=== PATIENT | female | born 1955 | race Caucasian/White ===

== ENCOUNTER 2020-09-01 11:00 | Emergency (ER) | payer MEDICARE, OTHER, SELFPAY ==
[2020-09-01] VITALS (7 sets, daily range): BP systolic 162–179; BP diastolic 88–97; PULSE 69–94; RESP 15–21; TEMP 35.8; O2SAT 99–100
--- NOTE | 2020-09-01 11:16 | ECG_ITS ---
Measurements Intervals [place] Rate: 85 P: 65 OK: 150 QRS: 77 QRSD: 118 T: 55 QT: 421 QTc: 503 Interpretive Statements SINUS RHYTHM POSSIBLE LEFT ATRIAL ENLARGEMENT INCOMPLETE RIGHT BUNDLE BRANCH BLOCK BORDERLINE ST ABNORMALITY- ANTEROLAT/INF LEADS BASELINE ARTIFACT- II, III, AVR, AVF, V1 BORDERLINE ECG Electronically Signed On 09-01-2020 12:05:47 CDT by Wilbert Johnson D.O.
[2020-09-01 11:54] LABS: Basophils Percent Auto 0.6 % (0.2-1.2); Eosinophils Absolute Auto 0.1 K/mm3 (0-0.3); Eosinophils Percent Auto 1.4 % (0-4.4); Hematocrit 42.2 % (37.0-47.0); Hemoglobin 14.2 g/dL (12.0-15.0); Immature Granulocyte Absolute 0.08 K/mm3 (0.00-0.031); Immature Granulocyte Percent A 1.2 % (0-0.5); Lymphocytes Absolute Auto 1.81 K/mm3 (0.9-3.2); Lymphocytes Percent Auto 27.9 % (18.3-44.2); Mean Corpuscular HGB Conc 33.6 g/dl (32-36); Mean Corpuscular Hemoglobin 29.2 pg (26-34); Mean Corpuscular Volume 86.7 fl (80-100); Mean Platelet Volume 10.4 fl (7.4-10.4); Monocytes Absolute Auto 0.3 K/mm3 (0.1-0.6); Monocytes Percent Auto 4.5 % (2.6-8.5); Neutrophils Absolute Auto 4.2 K/mm3 (1.3-6.7); Neutrophils Percent Auto 64.4 % (45.5-73.1); Platelet Count Result 266 k/mm3 (150-375); Red Blood Count 4.87 M/mm3 (4.2-5.4); Red Cell Distribution Width 12.4 % (11.5-14.5); White Blood Count 6.5 K/mm3 (4.5-10.0)
[2020-09-01 11:56] LABS: Anion Gap 8 mmol/L (8-16); Blood Urea Nitrogen 19 mg/dL (7-17); Calcium 9.2 mg/dL (8.4-10.2); Carbon Dioxide 23 mmol/L (22-30); Chloride 107 mmol/L (98-107); Estimated CRCL calculation 61 ml/min; Estimated Glomerular Filt Rate > 60; Glucose 169 mg/dL (65-105); Potassium 3.9 mmol/L (3.4-5.0); Sodium 138 mmol/L (137-145)
--- NOTE | 2020-09-01 12:11 | ED.GENADULT ---
HPI - General Adult General Chief complaint: Dizziness Stated complaint: DIZZY Time Seen by Provider: 09/01/20 11:17 History of Present Illness HPI narrative: Patient is a 65-year-old female who presents ER with dizziness and nausea and vomiting. Patient reports she was on the phone last night when she had a brief episode of spinning dizziness. It went away and she is able to go out with her friends to have some margaritas. Patient has been under a lot of stress as she is been caring for her sister and her sister's recently. Patient then woke up this morning and has been having severe positional dizziness that makes her nauseous and has caused her to vomit. No focal weakness in arm or leg. No slurred speech. Has not had similar symptoms this previously. Denies any sinus congestion or sore throat. No ear pressure or tinnitus. Her symptoms are also improved with sitting still and closing her eyes. Related Data Home Medications Medication Instructions Recorded Confirmed duloxetine mg PO 09/01/20 melatonin mg 09/01/20 Allergies Allergy/AdvReac Type Severity Reaction Status Date / Time Sulfa (Sulfonamide Allergy Mild HIVES Unverified 09/01/20 12:25 Antibiotics) Review of Systems Review of Systems: All systems reviewed & are unremarkable except as noted in HPI and below Constitutional: Constitutional: Denies chills, Denies fever(s) and Denies weakness Eyes: Eyes: Denies change in vision and Denies photophobia ENT: Reports dizziness, Denies nasal congestion and Denies sore throat Cardiovascular: Cardiovascular: Denies chest pain, Denies rapid heart rate and Denies radiating jaw, neck or arm pain Respiratory: Respiratory: Denies cough, Denies dyspnea and Denies wheezing Gastrointestinal: Gastrointestinal: Denies abdominal pain, Denies diarrhea, Reports nausea and Reports vomiting Genitourinary: Genitourinary: Denies nocturia and Denies dysuria [facility] Past Medical History Medical History (Updated 09/01/20 @ 14:46 by Sandro Phan MD) Anxiety Depression GERD (gastroesophageal reflux disease) Surgical History Surgical History (Updated 09/01/20 @ 12:19 by Sandro Phan MD) History of section History of cholecystectomy Family History Family History (Updated 09/01/20 @ 12:19 by Sandro Phan MD) Sibling Cerebrovascular accident Social History Social History (Updated 09/01/20 @ 12:19 by Sandro Phan MD) Smoking status: Never smoker Exam Narrative: Exam Narrative: GENERAL: Well-appearing, well-nourished, and in no acute distress. HEAD: Normocephalic, atraumatic. EYES: PERRL and EOMI. no nystagmus. ENT: Mucous membranes moist. TMs normal bilaterally. CHEST: Clear to auscultation. No respiratory distress. HEART: Regular rate and rhythm. Normal peripheral pulses. ABDOMEN: Soft, nontender, nondistended, normal active bowel sounds. EXTREMITIES: Normal range of motion. No edema. SKIN: Warm, dry, no rash. NEURO: No focal deficits. Normal finger-nose testing and [id number] testing bilaterally. No upper or lower extremity drift. Cranial nerves II through XII intact. Alert and oriented x3. Course Course Emergency Course: Dizziness markedly improved with meclizine and fluids. Patient ambulates steady gait. Discharge home with supportive medications. Apparently patient also had some sinus congestion issues in the last week that may have spurred this. Vital Signs Vital signs: Vital Signs Temperature 96.4 F L 09/01/20 11:02 Pulse Rate 94 09/01/20 11:02 Respiratory Rate 16 09/01/20 11:02 Blood Pressure 165/91 H 09/01/20 11:02 Pulse Oximetry 100 09/01/20 11:02 Temperature 96.4 F L 09/01/20 11:02 Pulse Rate 83 09/01/20 13:45 Respiratory Rate 17 09/01/20 13:45 Blood Pressure 163/90 H 09/01/20 13:45 Pulse Oximetry 100 09/01/20 13:45 Medical Decision Making Vital Signs Vital Signs: Vital Signs Temperature 96.4
[2020-09-01] MEDS: MECLIZINE HCL 25 MG TABLET PO (12:22)
[2020-09-01] MEDS: SODIUM CHLORIDE 0.9% IV 1,000 ML 999 ML IV CONT (12:22)
[2020-09-01 14:20] LABS: Add Urine Microscopic? YES; Amorphous Sediment Urine Few; Appearance Urine Cloudy (Clear); Bacteria Urine Trace /hpf; Bilirubin Urine Negative (Negative); Blood Urine Negative (Negative); Color Urine Yellow (Yellow); Glucose Urine UA Negative (Negative); Ketones Urine Trace mg/dL (Negative); Leukocyte Esterase Ur Negative LEU/UL (Negative); Mucus Urine Moderate /lpf; Nitrate Urine Negative (Negative); Protein Urine Negative (Negative); Specific Grav Ur 1.012 (1.001-1.035); Squamous Epithelial Cell Urine Rare /hpf (Few); Urobilinogen Urine Negative mg/dL (<2.0)
== END 2020-09-01 15:03 | disposition home or self-care (01) ==
PROVIDERS: Emergency Provider Emergency Medicine; PCP Internal Medicine
DX: H81.10 Benign paroxysmal vertigo, unspecified ear (principal); K21.9 Gastro-esophageal reflux disease without esophagitis; F41.9 Anxiety disorder, unspecified; F32.9 Major depressive disorder, single episode, unspecified; I45.10 Unspecified right bundle-branch block; R94.31 Abnormal electrocardiogram [ECG] [EKG]
CPT/HCPCS: 36415; 80048; 81001; 85025; 93005; 96360; 99283; A9270; J7030

== ENCOUNTER 2021-02-21 09:15 | Outpatient (RCR) | payer MEDICARE, OTHER, SELFPAY ==
--- NOTE | 2021-01-24 14:40 | PTOPEVAL ---
PHYSICAL THERAPY EVALUATION Thank you for referring Johanne Castro to [facility].? Erum was evaluated for the dx of christiano. knee pain. The patient is scheduled to be seen for therapy?2 x/week for 4 weeks. Please review, sign, date and return this plan of care ENRIQUE. I agree with and certify that the following plan of care is medically necessary. Referring Physician Date Attending Provider: Penny Salinas, *PT Outpatient Evaluation Start: 01/24/21 13:17 Freq: Status: Active Protocol: Document 01/24/21 13:18 MLV (Rec: 01/24/21 14:17 MLV [id number]) Therapy Assessment Status Assessment Status Assessment Status Evaluation Evaluation Information Problem Diagnosis left knee pain, low back Onset 1 year ago Cause no injury Additional Evaluation Detail Patient began having left knee pain, feels like a twisting pain. The patient had an xray, with possible OA. The patient had no limits to activity prior to knee pain; is retired but helps takes care of her sister and mother in law. Since the knee pain, the pt has trouble getting off the floor, going up/down steps, excessive walking and does her housework. Subjective Information The patient reports also Query Text:As Reported By Patient/ having back pain that requires Family the use of heat and tylenol for relief. Diagnostic Tests X-Rays For This Problem Yes: pt not sure of results Pain Assessment Timing of Pain Assessment Timing of Pain Assessment Assessment Pain Scale Pain Scale Used Numeric (1 - 10) Self Report Pain Assessment Right Knee(s) Reported Pain Level 0 Pain Frequency Acute,Chronic Other Pain Description 2 with stairs/transfers from floor Pain Aggravating Factors Exercise/Activity,Walking, Weight Bearing/Standing Left Knee(s) Reported Pain Level 0 Pain Frequency Acute,Chronic Other Pain Description 8 with stairs or transfer from floor Pain Aggravating Factors Exercise/Activity,Walking, Weight Bearing/Standing Pain Behaviors Limping Pain Score Pain Score 0,0: Self Report Interventions Used Interventions Used By Clinicians Education Pain Relief Inte
--- NOTE | 2021-01-30 07:29 | PTOPEVAL ---
PHYSICAL THERAPY EVALUATION Thank you for referring Johanne Castro to [facility] [place].? Erum was evaluated for the dx of neck and low back pain. The patient is scheduled to be seen for therapy?2 x/week for 4 weeks. Please review, sign, date and return this plan of care ENRIQUE. I agree with and certify that the following plan of care is medically necessary. Referring Physician Date Attending Provider: Penny Salinas, *PT Outpatient Evaluation Start: 01/24/21 13:17 Freq: Status: Active Protocol: Document 01/29/21 16:01 MLV (Rec: 01/29/21 16:57 MLV [id number]) Therapy Assessment Status Assessment Status Assessment Status Evaluation Evaluation Information Problem Diagnosis cervical and back pain Additional Evaluation Detail The pateint has had back pain for about 6 months that had no injury onset. The patient has had neck pain between 1-5 years. The patient denies a hx of fractures at her spine xrays indicate a mild degeneration at both areas. The pain at her back is worse with driving or senior care sitting and is unable to vacuum due to back pain. The neck pain is constant and not affected by tasks. The neck feels stiff, affecting the amount of head motion. Pt will wake at night due to neck pain. Diagnostic Tests X-Rays For This Problem Yes Pain Assessment Timing of Pain Assessment Timing of Pain Assessment Assessment Pain Scale Pain Scale Used Numeric (1 - 10) Self Report Pain Assessment Neck Reported Pain Level 2 Pain Description Aching,Tightness Pain Frequency Chronic Other Pain Description night pain at neck is a 5, occurs a few times a week Pain Behaviors Guarding Lower Back Reported Pain Level 3 Pain Description Aching,Pressure Other Pain Description with driving/sitting pain an 8 -9 Right Knee(s) Reported Pain Level 0 Left Knee(s) Reported Pain Level 2 Pain Score Pain Score 0,2,3,2: Self Report Interventions Used Interventions Used By Clinicians Education Pain Relief Interventions Used By Heat,Inactivity/Rest, Patient Medication,Position Change Other Allevia
--- NOTE | 2021-02-07 08:58 | PCPTNOTE ---
Patient did not show up for scheduled appointment this date. Called and spoke with Pt, she stated I thought my appointment was at 09:30am, and apologized for having the times mixed up. Reminded Pt of upcoming appointment on 02/09/21 @ 10:15.
--- NOTE | 2021-02-21 10:08 | PTOPEVAL ---
PHYSICAL THERAPY DISCHARGE Thank you for referring Johanne Castro to [facility].? The patient has completed her therapy for the dx of neck/back and knee pain. Goals are met. DC PT. Please review, sign, date and return this plan of care ENRIQUE. I agree with and certify the following plan of care. Referring Physician Date Admitting Provider: Attending Provider: Penny Salinas, Referring Provider: *PT Outpatient Discharge Start: 01/24/21 13:17 Freq: Status: Active Protocol: Document 02/21/21 09:25 MLV (Rec: 02/21/21 09:47 MLV [id number]) Therapy Assessment Status Assessment Status Assessment Status Discharge Evaluation Information Problem Diagnosis cervical and back pain Onset 1 year ago Cause no injury Additional Evaluation Detail The patient reports wanting to cancel her last appt-her schedule is very busy right now and she feels she can continue the exercises on her own and use heat to manage her symptoms. Overall, she feels she is doing better and asked for exercises focused on LE strength. Pain Assessment Timing of Pain Assessment Timing of Pain Assessment Assessment Pain Scale Pain Scale Used Numeric (1 - 10) Self Report Pain Assessment Neck Reported Pain Level 3 Pain Description Tightness Lower Back Reported Pain Level 2 Pain Description Aching Right Knee(s) Reported Pain Level 0 Left Knee(s) Reported Pain Level 1 Pain Score Pain Score 3,2,0,1: Self Report Interventions Used Interventions Used By Clinicians Education,Electrical Stimulation,Exercise,Heat Pain Relief Interventions Used By Exercise,Heat Patient Cervical and Lumbar ROM Cervical ROM Cervical Flexion (0-60) 50 Query Text:Active in Degrees Cervical Extension (0-70) 45 Query Text:Active in Degrees Cervical Lateral Flexion Right (0-50) 27 Query Text:Active in Degrees Cervical Lateral Flexion Left (0-50) 20 Query Text:Active in Degrees Cervical Rotation Right (0-90) 43 Query Text:Active in Degrees Cervical Rotation Left (0-90) 60 Query Text:Active in Degrees Cervical and Lumbar Muscle Testing Lumbar Strength Upper Abdominal Strength 3+Fair+ Lower Abdominal Strength 3+Fair+ Abdominal Obliques 3 Fair Upper Back Extension 4-Good- Lowe
== END 2021-02-22 08:58 | disposition home or self-care (01) ==
LOC: ANHPT 09:15
PROVIDERS: PCP Internal Medicine; Visit Provider Family Medicine
DX: M25.561 Pain in right knee (principal); M50.30 Other cervical disc degeneration, unspecified cervical region; M51.36 Other intervertebral disc degeneration, lumbar region
CPT/HCPCS: 97014; 97110; 97140; 97162; G0283

== ENCOUNTER → 2021-05-08 12:28 | Outpatient (CLI) | payer MEDICARE, OTHER, SELFPAY ==
--- NOTE | ~2021-05-08 | MR_ITS ---
EXAMINATION: MR lumbar spine wo con DATE: 05/08/2021 13:06 INDICATION: Low back pain. TECHNIQUE: Magnetic resonance imaging (MRI) of the lumbar spine was performed without intravenous con trast. Sequences included sagittal T2-weighted FSE, sagittal T2-weighted FS FSE, sagittal T1-weighted FSE, and axial T2-weighted FSE. COMPARISON: None FINDINGS: There is 6 degrees dextrocurvature of thoracolumbar spine. There are Schmorl's nodes at L2- L3 and L3-L4. There is a hemangioma in L3 vertebral body. There is mildly decreased disc height at L2 -L3 and L3-L4. The distal spinal cord signal intensity is normal. The conus medullaris is at The foll owing disc levels are specifically discussed: L1-L2: The disc is mildly bulging. There is mild bilateral facet joint osteoarthritis. There is mild right neural foraminal stenosis. There is no central canal stenosis. L2-L3: The disc is bulging and has an annular fissure. There is mild bilateral facet joint osteoarthr itis. There is mild left neural foraminal stenosis. There is mild central canal stenosis. L3-L4: The disc is bulging and has an annular fissure. There is mild bilateral facet joint osteoarthr itis. There is mild bilateral neural foraminal stenosis. There is mild central canal stenosis. L4-L5: The disc is bulging and has an annular fissure. There is mild bilateral facet joint osteoarthr itis. There is mild bilateral neural foraminal stenosis. There is mild central canal stenosis. L5-S1: The disc does not extend beyond the endplate margin. There is mild bilateral facet joint osteo arthritis. There is no neural foraminal stenosis. There is no central canal stenosis. IMPRESSION: 1. Mild lumbar spondylosis. Reviewed, dictated and finalized at location B. COACH IMPRESSION: 1. Mild lumbar spondylosis.
== END ==
PROVIDERS: PCP Family Medicine; Visit Provider Family Medicine
DX: M47.817 Spondylosis without myelopathy or radiculopathy, lumbosacral region (principal); M48.07 Spinal stenosis, lumbosacral region
CPT/HCPCS: 72148

== ENCOUNTER → 2022-05-14 08:13 | Outpatient (CLI) | payer MEDICARE, OTHER, SELFPAY ==
--- NOTE | ~2022-05-14 | MR_ITS ---
EXAMINATION: MR cervical spine wo con DATE: 05/14/2022 08:46 INDICATION: Neck pain. TECHNIQUE: Magnetic resonance imaging (MRI) of the cervical spine was performed without intravenous c ontrast. Sequences included sagittal T2-weighted FSE, sagittal T2-weighted FS FSE, sagittal T1-weight ed FSE, axial MERGE, and axial T2-weighted FSE. COMPARISON: None FINDINGS: There is 7 degrees dextrocurvature of cervicothoracic spine. There is 2 mm retrolisthesis o f C5 on C6. There is mild kyphosis of cervical spine. Vertebral body heights are normal. There is mil dly decreased disc height at C4-C5 and severely decreased disc height at C5-C6 and C6-C7. The spinal cord signal intensity is normal. The following disc levels are specifically discussed: C2-C3: The disc does not extend beyond the endplate margin. There is mild left uncovertebral joint os teoarthritis. There is moderate right and severe left facet joint osteoarthritis. There is mild left neural foraminal stenosis. There is no central canal stenosis. C3-C4: The disc does not extend beyond the endplate margin. There is moderate left uncovertebral join t osteoarthritis. There is mild right and severe left facet joint osteoarthritis. There is mild left neural foraminal stenosis. There is no central canal stenosis. C4-C5: The disc does not extend beyond the endplate margin. There is mild bilateral uncovertebral connor nt osteoarthritis. There is ankylosis of left facet joint with severe hypertrophy. There is mild left neural foraminal stenosis. There is no central canal stenosis. C5-C6: The disc is bulging. There is severe bilateral uncovertebral joint osteoarthritis. There is mo derate left facet joint osteoarthritis. There is mild right and moderate left neural foraminal stenos is. There is mild central canal stenosis. C6-C7: The disc is bulging. There is moderate right and severe left uncovertebral joint osteoarthriti s. There is severe bilateral facet joint osteoarthritis. There is mild bilateral neural foraminal peterson nosis. There is mild central canal stenosis. C7-T1: The disc does not extend beyond the endplate margin. There is no uncovertebral joint osteoarth ritis. There is severe bilateral facet joint osteoarthritis. There is mild bilateral neural foraminal stenosis. There is no central canal stenosis. IMPRESSION: 1. Severe cervical spondylosis. Reviewed, dictated and finalized at location A. [employer]IST
== END ==
PROVIDERS: PCP Family Medicine; Visit Provider Physician Assistant
DX: M54.2 Cervicalgia (principal); M43.02 Spondylolysis, cervical region
CPT/HCPCS: 72141

== ENCOUNTER 2022-05-22 10:49 | Outpatient (CLI) | payer MEDICARE, OTHER, SELFPAY | END 2022-05-22 10:50 | disposition home or self-care (01) | LOC: ANHAUDIO 10:50 | PROVIDERS: PCP Family Medicine; Visit Provider Family Medicine | DX: H91.93 Unspecified hearing loss, bilateral (principal) | CPT/HCPCS: 92557; 92567 ==

== ENCOUNTER 2022-06-13 10:00 | Outpatient (RCR) | payer MEDICARE, OTHER, SELFPAY ==
[2022-05-23 13:35] VITALS: BP_SYST 160
--- NOTE | 2022-05-23 14:29 | PTOPEVAL1 ---
Assessment and note entered by Lidia Verdugo, PT Evaluation Information Diagnosis R shoulder pain Onset October 2021 Subjective Information Fell in October, walking down a hill, landed forward & sideways on R arm; also fell in January, forward and landed on both arms, carrying food and fell onto curb; cortisone shot in Mar helped pain; received a shingles shot 3 weeks ago and more sore ; pain varies in shoulder, some days better and not as painful; Reported Pain Level Pain Score Self Report Additional Pain Score Comments pain range of 2-6/10; R shoulder- pain to touch over anterior shoulder; cannot lie on R shoulder- painful; is not a good sleeper in general--toss and turn all night; is not able to vacuum; increase pain with reaching behind her back; decrease pain with over the counter meds PRN; use heat PRN; intermittent into R arm to elbow; also have neck pain; pt report recent MRI of neck --severe arthritis and bulging disc Assessment PT Clinical Summary Erum has the diagnosis of R shoulder pain. Her history includes 2 falls onto R UE, chronic neck and back pain, with arthritis. The shoulder injection has decreased her pain. She reports her shoulder xray stated no fracture. With the evaluation, she has pain over bicep groove, mid deltoid areas, with decreased active flexion and abduction motions, with most pain increase with flexion; posture is rounded shoulder and forward head; also has decreased cervical rotation ROM and pain; Skilled PT services are indicated for treatment of shoulder trauma and impingement syndrome: modalities for pain control, therapeutic exercises to increase flexibility and strength of shoulder- scapular muscles and education for home exercises and posture correction. Plan of Care Interventions Electrical Stimulation,Hot Pack/Cold Pack,Manual Therapy,Neuro Re-education,Patient/Caregiver Education,Therapeutic Activities,Therapeutic Exercise,Ultrasound,Other Other Interventions taping PT Services Indicated Yes Treatment Frequency and 2x/wk for 3 weeks Duration These treatments will address the objective and functional deficits as defined above. The patient will be advanced safely and appropriately in order for the patient to progress towards
[2022-06-13 10:00] VITALS: BP_SYST 160
--- NOTE | 2022-06-13 10:43 | PTOPDC ---
Assessment and note entered by Lidia Verdugo, PT Evaluation Information Assessment Status Discharge Diagnosis R shoulder pain Onset October 2021 Subjective Information Erum reports: shoulder is better; some days it is fine, other days little pain; do not vacuum, but do everything else; wants to stop therapy and do exercises on her own--has had way too many appt between her, her , her sister and father in law--too busy running around; has return dr appt in mid June; If shoulder gives her any more trouble, she will call the dr for another order. Reported Pain Level Pain Score Self Report Additional Pain Score Comments pain range of 1-5/10; R shoulder achey and sometimes sharp at anterior shoulder; increase pain with using R arm; decrease pain with rest, rub shoulder, take ibuprofen; some troubles with lying on her R side, but can sleep on it; Assessment PT Clinical Summary Erum has received 5 PT sessions. Compared to the initial evaluation, pain rating has improved by 1 at both low and high ratings; is able to use her arm for all home activity except vacuuming; continues to have tenderness over bicep groove/ anterior GH joint and upper deltoid muscle; strength of R shoulder has increased; active shoulder flexion ROM is the same at 140', abduction motion increased to 140'; continues to have pain at end ranges of flexion, abduction and IR motions. Education has been completed for home exercises and posture correction. The goals were partially achieved. Discharge PT services and is to continue with her home exercises. Plan of Care PT Services Indicated No
== END 2022-06-13 12:55 | disposition home or self-care (01) ==
LOC: ANHPT 10:00
PROVIDERS: PCP Family Medicine; Visit Provider Orthopaedic Surgery Hand Surgery
DX: M25.511 Pain in right shoulder (principal)
CPT/HCPCS: 97110; 97140; 97161

== ENCOUNTER → 2022-07-04 15:19 | Outpatient (CLI) | payer MEDICARE, OTHER, SELFPAY ==
--- NOTE | ~2022-07-04 | MR_ITS ---
EXAMINATION: MR brain/brain stem wo con DATE: 07/04/2022 15:49 INDICATION: Tremor. Bilateral tinnitus. TECHNIQUE: Magnetic resonance imaging (MRI) of the brain and brainstem was performed without intraven ous contrast. COMPARISON: None. FINDINGS: There is no intracranial hemorrhage, acute infarction, or abnormal intracranial mass lesion . The ventricles are normal in size. The paranasal sinuses are clear. The orbits are normal. There is a trace left mastoid effusion. IMPRESSION: 1. Normal brain. Reviewed, dictated and finalized at location A. H UP WORKER IMPRESSION: 1. Normal brain.
== END ==
PROVIDERS: PCP Family Medicine; Visit Provider Family Medicine
DX: R26.89 Other abnormalities of gait and mobility (principal); R29.6 Repeated falls; R25.1 Tremor, unspecified; H93.13 Tinnitus, bilateral
CPT/HCPCS: 70551

== ENCOUNTER 2022-07-18 00:20 | Day surgery (SDC) | payer MEDICARE, OTHER, SELFPAY ==
[2022-07-04 13:21] VITALS: BMI 20.9
--- NOTE | 2022-07-17 13:08 | PM.HPGS ---
History of Present Illness History of Present Illness Consent: Risks, benefits, and alternatives have been discussed and questions answered. Patient agrees to proceed with procedure. Chief complaint: dysphagia Narrative: Johanne Castro is a 67 year old female who has a sensation that is difficult to swallow.? This is not just with meals.? She feels as though her throat is closing on her.? Is worse when she lays down at night.? She feels as though mucus or something is caught and she is not able to swallow it.? She very rarely notices food getting caught or going slowly down her chest.? It is almost always in her throat that she feels the problem.? She has lost a few lb, about 6 or 7 lb in last few months.? she has been on pantoprazole for the past year and also has been started on famotidine at bedtime. These medications do not seem to have been of any benefit. Review of Systems Review of Systems: All systems reviewed & are unremarkable except as noted in HPI and below PMFSH Past Medical History Medical History Anxiety Depression GERD (gastroesophageal reflux disease) Surgical History Surgical History History of section History of cholecystectomy Family History Family History Sibling Cerebrovascular accident Social History Social History Smoking status: Never smoker Alcohol intake: current Alcohol use details: social Substance use: never Substance use type: does not use Living arrangements: with family Spiritual care concerns: No Meds Home Medications and Allergies Home Medications Medication Instructions Recorded Confirmed Type melatonin 10 mg tablet 10 mg PO HS 09/01/20 07/04/22 History famotidine 40 mg tablet 40 mg PO DAILY 06/18/22 07/04/22 History pantoprazole 40 mg tablet,delayed 40 mg PO QAM 06/18/22 07/04/22 History release sertraline 150 mg capsule 150 mg PO DAILY 06/18/22 07/04/22 History Metamucil (sugar) 3 g PO DAILY 07/04/22 07/04/22 History calcium carbonate 400 mg calcium 800 mg PO DAILY 07/04/22 07/04/22 History (1,000 mg) chewable tablet (Tums Ultra) meclizine 25 mg tablet 25 mg PO TID PRN Dizziness 07/04/22 07/04/22 History multivitamin-ferrous 1 tablet PO DAILY 07/04/22 07/04/22 History fumarate-folic acid 18 mg-400 mcg tablet (Centrum Women) temazepam 15 mg capsule 15 mg PO HS PRN Insomnia 07/04/22 07/04/22 History Allergies Allergy/AdvReac Type Severity Reaction Status Date / Time Sulfa (Sulfonamide Allergy Mild HIVES Verified 07/18/22 07:52 Antibiotics) Exam Const: General: alert Orientation/consciousness: patient oriented x3 Resp: Auscultation: clear to auscultation bilaterally Cardio: Rhythm: regular rhythm GI: GI Palp: Yes Soft to palpation and No Tenderness to palpation present (GI) Neuro: General: patient oriented x3 Assessment and Plan Assessment and plan (1) GERD (gastroesophageal reflux disease): Code(s): K21.9 - Gastro-esophageal reflux disease without esophagitis Status: Acute Assessment and Plan: EGD with possible biopsy or dilatation or cautery.
[2022-07-18 07:54] VITALS: BP 106/60; PULSE 80; RESP 20; TEMP 36.4; O2SAT 99; BMI 20.6
[2022-07-18] MEDS: LACTATED RINGERS 1,000 ML 150 ML IV CONT (08:04)
--- NOTE | 2022-07-18 08:50 | P.PNAN_ITS ---
Anes - Initial Pre Proc Eval Procedure: Operation Date: 07/18/22 09:00 Proposed Procedures p Esophagogastroduodenoscopy - Eligio Samuels MD Date/Time: 07/18/22 08:50 Surgeon: Eligio Samuels MD Pre Op Diagnosis: dysphagia Patient Data Age: 67 Gender: F Height: 1.57 m Weight: 51.1 kg Last Vital Signs Temp 97.6 F 07/18/22 07:54 Pulse 80 07/18/22 07:54 Resp 20 07/18/22 07:54 BP 106/60 07/18/22 07:54 Pulse Ox 99 07/18/22 07:54 O2 Del Method Room Air 07/18/22 07:54 Allergies Allergy/AdvReac Type Severity Reaction Status Date / Time Sulfa (Sulfonamide Allergy Mild HIVES Verified 07/18/22 07:52 Antibiotics) Home Medications Medication Instructions Recorded Confirmed Type melatonin 10 mg tablet 10 mg PO HS 09/01/20 07/04/22 History famotidine 40 mg tablet 40 mg PO DAILY 06/18/22 07/04/22 History pantoprazole 40 mg tablet,delayed 40 mg PO QAM 06/18/22 07/04/22 History release sertraline 150 mg capsule 150 mg PO DAILY 06/18/22 07/04/22 History Metamucil (sugar) 3 g PO DAILY 07/04/22 07/04/22 History calcium carbonate 400 mg calcium 800 mg PO DAILY 07/04/22 07/04/22 History (1,000 mg) chewable tablet (Tums Ultra) meclizine 25 mg tablet 25 mg PO TID PRN Dizziness 07/04/22 07/04/22 History multivitamin-ferrous 1 tablet PO DAILY 07/04/22 07/04/22 History fumarate-folic acid 18 mg-400 mcg tablet ([employer] Women) temazepam 15 mg capsule 15 mg PO HS PRN Insomnia 07/04/22 07/04/22 History Patient hx anesthesia problems: none Family hx anesthesia problems: none Results Review: All pre-operative results and documents have been reviewed as part of the pre- operative evaluation. [facility] Past Medical History Medical History Anxiety Depression GERD (gastroesophageal reflux disease) Surgical History Surgical History History of section History of cholecystectomy Family History Family History Sibling Cerebrovascular accident Social History Social History Smoking status: Never smoker Alcohol intake: current Alcohol use details: social Substance use: never Substance use type: does not use Living arrangements: with family Spiritual care concerns: No Anes - Eval Final PreProcedure Day of Procedure 07/18/22 08:50 Patient weight: normal Heart: regular rate and rhythm Lungs: clear to auscultation Airway: Mallampati scale class II Neurological: alert and oriented Last oral intake: >/= 8 hours ASA classification: II Emergent: no Anesthetic plan: proceed Anesthesia type and monitoring: general GIVS and standard monitoring Results Review: All pre-operative results and documents have been reviewed as part of the pre- operative evaluation. Informed Consent: The patient's anesthetic plan and its attendant risks and benefits were discussed with the patient/family/POA. Questions were solicited and answers provided to the satisfaction of the patient/family/POA.
[2022-07-18 09:14] VITALS: BP 112/63; PULSE 65; RESP 16; O2SAT 98
[2022-07-18 09:24] VITALS: BP 115/82; PULSE 60; RESP 15; O2SAT 98
[2022-07-18 09:34] VITALS: BP 121/84; PULSE 62; RESP 18; O2SAT 99
== END 2022-07-18 09:46 | disposition home or self-care (01) ==
PROVIDERS: PCP Family Medicine; Visit Provider Internal Medicine Gastroenterology
PROC: 0DJ08ZZ Inspection of Upper Intestinal Tract, Via Natural or Artificial Opening Endoscopic (ICD-10-PCS; CPT 43235; principal; 2022-07-18 09:00)
DX: R13.12 Dysphagia, oropharyngeal phase (principal); K21.9 Gastro-esophageal reflux disease without esophagitis; F41.9 Anxiety disorder, unspecified; F32.A Depression, unspecified
CPT/HCPCS: 43239; 88305; J2704; J7120

== ENCOUNTER 2023-04-26 10:59 | Emergency (ER) | payer MEDICARE, OTHER, SELFPAY ==
--- NOTE | ~2023-04-26 | XR_ITS ---
EXAMINATION: XR chest 2V DATE: 04/26/2023 11:48 INDICATION: Cough. TECHNIQUE: Frontal and lateral views of the chest were obtained. COMPARISON: None. FINDINGS: There is mild scarring at the lung apices. No pleural effusion or pneumothorax. The heart s ize is normal. Surgical clips in the right upper quadrant are likely from cholecystectomy. IMPRESSION: 1. Mild scarring at the lung apices. Reviewed, dictated and finalized at location A. [facility]
[2023-04-26 11:00] VITALS: BP 154/85; PULSE 96; RESP 16; TEMP 36.4; O2SAT 100
[2023-04-26 11:56] LABS: Influenza A QL RT-PCR Negative (Negative); Influenza B QL RT-PCR Negative (Negative); RSV RNA, RT-PCR Negative (Negative); SARS-CoV-2 RNA PCR Negative (Negative)
--- NOTE | 2023-04-26 12:10 | ED.URI ---
HPI - URI/Sore Throat General Chief Complaint: Upper Respiratory Infection Stated Complaint: cough Time Seen by Provider: 04/26/23 11:07 History of Present Illness HPI Narrative: Patient presenting with URI symptoms last few days, she has a mild cough, worse at night when she lays flat, with nasal congestion and sore throat. Related Data Home Medications Medication Instructions Recorded Confirmed melatonin 10 mg tablet 10 mg PO HS 09/01/20 07/04/22 famotidine 40 mg tablet 40 mg PO DAILY 06/18/22 07/04/22 pantoprazole 40 mg tablet,delayed 40 mg PO QAM 06/18/22 07/04/22 release sertraline 150 mg capsule 150 mg PO DAILY 06/18/22 07/04/22 Metamucil (sugar) 3 g PO DAILY 07/04/22 07/04/22 calcium carbonate 400 mg calcium 800 mg PO DAILY 07/04/22 07/04/22 (1,000 mg) chewable tablet ([employer] Ultra) meclizine 25 mg tablet 25 mg PO TID PRN Dizziness 07/04/22 07/04/22 multivitamin-ferrous 1 tablet PO DAILY 07/04/22 07/04/22 fumarate-folic acid 18 mg-400 mcg tablet (Centrum Women) temazepam 15 mg capsule 15 mg PO HS PRN Insomnia 07/04/22 07/04/22 Allergies Allergy/AdvReac Type Severity Reaction Status Date / Time Sulfa (Sulfonamide Allergy Mild HIVES Verified 04/26/23 11:09 Antibiotics) Review of Systems Review of Systems: All systems reviewed & are unremarkable except as noted in HPI and below PMFSH Past Medical History Medical History Anxiety Depression GERD (gastroesophageal reflux disease) Surgical History Surgical History History of section History of cholecystectomy Family History Family History Sibling Cerebrovascular accident Social History Social History Smoking status: Never smoker Alcohol intake: current Alcohol use details: social Substance use: never Substance use type: does not use Living arrangements: with family Spiritual care concerns: No Exam Narrative: EXAMINATION OF ORGAN SYSTEMS/BODY AREAS: Constitutional: Vital signs per nursing GENERAL:[No acute distress, non-toxic appearing.] HEAD: Normal with no signs of head trauma. EYES: EOMI, conjunctiva normal ENT: Hearing grossly intact LUNGS: Nonlabored breathing. Clear to auscultation bilaterally HEART: [Regular rate and rhythm] ABD: [Soft], [nontender to palpation] EXT: Normal range of motion SKIN: [No rashes or lesions.] NEURO: [Alert and oriented x 3. No gross focal sensory or strength deficits.] PSYCH: Normal affect Course Vital Signs Vital signs: Vital Signs Temperature 97.6 F 04/26/23 11:00 Pulse Rate 96 04/26/23 11:00 Respiratory Rate 16 04/26/23 11:00 Blood Pressure 154/85 H 04/26/23 11:00 Pulse Oximetry 100 04/26/23 11:00 Oxygen Delivery Room Air 04/26/23 11:00 Temperature 97.6 F 04/26/23 11:00 Pulse Rate 96 04/26/23 11:00 Respiratory Rate 16 04/26/23 11:00 Blood Pressure 154/85 H 04/26/23 11:00 Pulse Oximetry 100 04/26/23 11:00 Oxygen Delivery Room Air 04/26/23 11:07 MDM - URI/Sore Throat MDM Narrative Medical decision making narrative: ED COURSE AND MEDICAL DECISION MAKING: This 68year old patient presents with symptoms most suggestive of viral upper respiratory tract infection. Lungs are clear bilaterally without any respiratory distress or accessory muscle use. Chest x-ray, COVID and swabs are negative She is discharged home in stable condition with expectant management. Return precautions were provided. Lab Data Labs: Lab Results 04/26/23 Range/Units 11:14 Influenza A (RT-PCR) Negative (Negative) Influenza B (RT-PCR) Negative (Negative) RSV (RT-PCR) Negative (Negative) SARS-CoV-2 RNA (RT-PCR) Negative (Negative) Discharge Plan Discharge Clinical Impression: Upper
[2023-04-26 12:13] VITALS: BP 134/75; PULSE 70; RESP 20; O2SAT 100
== END 2023-04-26 12:15 | disposition home or self-care (01) ==
PROVIDERS: Emergency Provider Emergency Medicine; PCP Family Medicine
DX: J06.9 Acute upper respiratory infection, unspecified (principal); Z20.822 Contact with and (suspected) exposure to COVID-19; K21.9 Gastro-esophageal reflux disease without esophagitis; F41.9 Anxiety disorder, unspecified; F32.A Depression, unspecified
CPT/HCPCS: 71046; 87637; 99283

== ENCOUNTER 2023-07-02 08:40 | Outpatient (CLI) | payer MEDICARE, OTHER, SELFPAY ==
--- NOTE | 2023-07-22 14:29 | WPDHOMESLEEP ---
Sleep Study - Home Unattended Date of Study: 07/02/23 Ordering Provider: Serena Del Cid APRN Interpreting Provider: Janneth Garcia MD Home Sleep Study Type: Watch PAT Height: 1.56 m Weight: 48.988 kg Body Mass Index: 20.0 Neck Circumference (inches): 13 [place]: 9 Reason for Sleep Study Difficulty getting to sleep, restless sleep Sleep History Johanne Castro is a 68-year-old woman with loud snoring and restless sleep. In 2006, she was diagnosed with sleep apnea however could not adjust to using CPAP. She rarely awakens from sleep short of breath. She frequently wakes at night with heartburn, belching or coughing.??She frequently snores, frequently snores loudly enough that others complain. She constantly has trouble sleeping when she has a cold. She occasional wakes up gasping for breath during the night. She rarely has breathing problems at night observed by other. She frequently sweats excessively at night. She does not comment regarding her heart pounding or beating irregularly during the night. She occasionally falls asleep during the day. She never falls asleep involuntarily, never falls asleep while driving. She does not experience loss of muscle tone with strong emotion. She does not feels paralyzed on waking or falling asleep. She occasionally experiences vivid dreams upon waking or falling asleep. She never feels afraid of going to sleep. She rarely has nightmares. She frequently recalls her dreams. She rarely has thoughts racing through her mind. She occasionally feels sad or depressed. She frequently feels anxiety. She occasionally notices parts of her body jerk. She occasionally kicks during the night. She frequently feels crawling or aching feelings in her legs. She frequently feels leg pain at night. She occasionally has morning jaw pain, and rarely grinds her teeth at night. She frequently feels bothered by pain during the day, is occasionally awakened by pain during the night. She frequently wakes up feeling stiff in the morning, frequently wakes feeling sore or achy in the morning. She frequently awakens with pain in her neck, spine, or joints. Normal bedtime is 12 midnight, falling asleep within 30 minutes but sometimes taking several hours, waking 2-3 times at night, short episodes of wake long enough to go to the bathroom, then back to bed. She takes melatonin 10 mg to assist with falling asleep. She wakes between 8:00 a.m. and 9:00 a.m., reports getting 8 hours of sleep per night. She takes naps in the afternoon or evening. A short nap is not refreshing. She is usually drowsy for an hour after waking. she always has heartburn at night. She frequently has daytime sleepiness. She occasionally has morning headaches and only occasionally wakes up feeling refreshed. She occasionally has memory or concentration problems. Habits:??Tobacco: stopped 53 years ago Caffeine: none Alcohol: none Recreational substances: none [facility] Past Medical History Medical History (Updated 07/22/23 @ 16:22 by Janneth Garcia MD) Anxiety Depression GERD (gastroesophageal reflux disease) Obstructive sleep apnea Surgical History Surgical History (Updated 06/25/23 @ 10:53 by Marj Nicole MA) History of breast lump removal History of section History of cholecystectomy Status post cervical spinal fusion Family History Family History (Updated 06/25/23 @ 11:39 by Serena Del Cid APRN) Sibling Cerebrovascular accident Alcoholism Cancer Father Alcoholism Hypertension CAD (coronary artery disease) Mother Cancer Grandparent Cancer Social History Social History (Updated 06/25/23 @ 10:54 by Marj Nicole MA) Smoking status: Never smoker Alcohol intake: current Alcohol use details: social Substance use: never Substance use type: does not use Do You Feel Safe in your Home?: Yes Lack of Transportation: No Lack of Food: Never True Current Housing: I Have Housing
== END 2023-07-03 07:30 | disposition home or self-care (01) ==
LOC: ANHCSM 08:47
PROVIDERS: PCP Family Medicine; Visit Provider Nurse Practitioner Family
DX: R40.0 Somnolence (principal)
CPT/HCPCS: 95800

== ENCOUNTER 2024-02-25 07:35 | Outpatient (CLI) | payer MEDICARE, OTHER, SELFPAY ==
--- NOTE | ~2024-02-25 | XR_ITS ---
EXAMINATION: XR UGIAC w barium swallow DATE: 02/25/2024 08:48 INDICATION: Other specified symptoms and signs involving the digestive system. Dysphagia. TECHNIQUE: The patient drank thick barium, gas-producing crystals, and thin barium. Fluoroscopy of th e esophagus, stomach, and proximal small bowel was performed. Fluoroscopy exposure time was 0.7 minut es. The total number of images was 244. Total dose-area product was 1.03 Gy-cm^2. COMPARISON: None. FINDINGS: There is no mass or stricture of the esophagus. Esophageal motility is normal. There is no hiatal hernia. There was no gastroesophageal reflux with provocative maneuvers. The stomach and proxi mal small bowel show normal folding patterns. IMPRESSION: 1. Normal esophagram and upper gastrointestinal series. Reviewed, dictated and finalized at location A.
[2024-03-01 15:24] LABS: Immunoglobulin A 291 mg/dL (70-320); TTG IGA AB <1.0 U/mL
== END 2024-02-25 07:36 | disposition home or self-care (01) ==
LOC: ANHIMG 07:39
PROVIDERS: PCP Nurse Practitioner; Visit Provider Nurse Practitioner
DX: R14.0 Abdominal distension (gaseous) (principal); K21.9 Gastro-esophageal reflux disease without esophagitis; K58.0 Irritable bowel syndrome with diarrhea; R09.89 Other specified symptoms and signs involving the circulatory and respiratory systems
CPT/HCPCS: 36415; 74246; 82784; 86364

== ENCOUNTER 2024-03-26 07:55 | Outpatient (CLI) | payer MEDICARE, OTHER, SELFPAY ==
--- NOTE | ~2024-03-26 | CT_ITS ---
CT of the Abdomen and Pelvis: Indication: Abdominal pain Technique: 2.5 mm axial scans were obtained through the abdomen and pelvis following intravenous adm inistration of 100 cc of Omnipaque 350. Dose reduction technique was used on this scan by utilizing a utomated exposure control and iterative reconstruction technique. The dose-length product (DLP) was 2 77.88 mGy-cm. Findings: Scans through the lung bases are unremarkable. The liver, spleen, pancreas, adrenals and kidneys are within normal limits. Cholecystectomy clips are present. No evidence of aortic aneurysm. No lymphadenopathy. No bowel obstruction or bowel wall thickening. There is no evidence to suggest acute appendicitis. Images through the pelvis were performed. Urinary bladder unremarkable. No pelvic mass seen. No ascit es. Impression: No significant abnormalities seen. Reviewed, dictated and finalized at [facility]. Impression: No significant abnormalities seen.
[2024-03-26 08:45] LABS: Estimated Glomerular Filt Rate > 60
== END 2024-03-26 07:56 | disposition home or self-care (01) ==
PROVIDERS: PCP Nurse Practitioner; Visit Provider Nurse Practitioner
DX: R10.32 Left lower quadrant pain (principal); R10.814 Left lower quadrant abdominal tenderness; K59.00 Constipation, unspecified; R14.0 Abdominal distension (gaseous)
CPT/HCPCS: 74177; Q9967

== ENCOUNTER 2024-04-27 00:26 | Day surgery (SDC) | payer MEDICARE, OTHER, SELFPAY ==
[2024-04-14 15:02] VITALS: BMI 21.9
[2024-04-27 14:16] VITALS: BP 146/82; PULSE 93; RESP 14; TEMP 36.3; O2SAT 99
[2024-04-27] MEDS: LACTATED RINGERS 1,000 ML 150 ML IV CONT (14:19)
--- NOTE | 2024-04-27 14:45 | WPDANESEPPF ---
Anes - Initial Pre Proc Eval Procedure: Operation Date: 04/27/24 15:00 Proposed Procedures p Esophagogastroduodenoscopy & Colonoscopy - Juancarlos Millan MD Date/Time: 04/27/24 14:45 Surgeon: Juancarlos Millan MD Pre Op Diagnosis: left lower quad abd tenderness, GERD, constipation Patient Data Age: 69 Gender: F Height: 1.57 m Weight: 52.3 kg Last Vital Signs Temp 97.3 F L 04/27/24 14:16 Pulse 93 04/27/24 14:16 Resp 14 04/27/24 14:16 BP 146/82 H 04/27/24 14:16 Pulse Ox 99 04/27/24 14:16 O2 Del Method Room Air 04/27/24 14:16 Allergies Allergy/AdvReac Type Severity Reaction Status Date / Time Sulfa (Sulfonamide Allergy Mild HIVES Verified 04/27/24 14:11 Antibiotics) Home Medications Medication Instructions Recorded Confirmed Type calcium carbonate (Tums Ultra) 800 mg PO DAILY 07/04/22 04/27/24 History multivitamin-ferrous 1 tablet PO DAILY 07/04/22 04/27/24 History fumarate-folic acid 18 mg-400 mcg tablet ([employer]) acetaminophen 500 mg tablet 500 mg PO Q6H PRN Pain (Scale 06/25/23 04/27/24 History Score 4-6) alprazolam 0.5 mg tablet 0.5 mg PO DAILY PRN anxiety #10 06/25/23 04/27/24 Rx tabs cyclobenzaprine 10 mg tablet 10 mg PO TID PRN unknown 06/25/23 04/27/24 History fluticasone propionate 50 1 spray intranasal DAILY PRN 06/25/23 04/27/24 History mcg/actuation nasal unknown spray,suspension atorvastatin 20 mg tablet 20 mg PO QHS #90 tabs 01/23/24 04/27/24 Rx levothyroxine 50 mcg tablet 50 mcg PO DAILY #90 tabs 01/23/24 04/27/24 Rx dexlansoprazole 60 mg 60 mg PO DAILY #30 caps 03/16/24 04/27/24 Rx capsule,biphase delayed release (Dexilant) sertraline 100 mg tablet 100 mg PO DAILY #90 tabs 03/22/24 04/27/24 Rx sertraline 50 mg tablet 50 mg PO DAILY #90 tabs 03/22/24 04/27/24 Rx Patient hx anesthesia problems: none Family hx anesthesia problems: none Results Review: All pre-operative results and documents have been reviewed as part of the pre-operative evaluation. [facility] Past Medical History Medical History Anxiety Depression GERD (gastroesophageal reflux disease) Obstructive sleep apnea Surgical History Surgical History History of breast lump removal History of section History of cholecystectomy Status post cervical spinal fusion Family History Family History Sibling Cerebrovascular accident Alcoholism Cancer Father Alcoholism Hypertension CAD (coronary artery disease) Mother Cancer Grandparent Cancer Social History Social History Smoking status: Former smoker Alcohol intake: current Alcohol use details: social Substance use: never Substance use type: does not use Do You Feel Safe in your Home?: Yes Lack of Transportation: No Lack of Food: Never True Current Housing: I Have Housing Concerned About Future Housing: No Difficulty Paying Gas/Electric Bills: No Difficulty Paying for Meds: No Currently Unemployed: No Education: High School Diploma/GED Difficulty w/ Childcare or Family Care: No Living arrangements: with family Occupation/Education: retired Gender identity (if verbalized by the patient): Female Spiritual care concerns: No Agree to blood products: Yes Anes - Eval Final PreProcedure Day of Procedure 04/27/24 14:45 Patient weight: normal and thin Heart: regular rate and rhythm Lungs: clear to auscultation Airway: Mallampati scale class II and special considerations (Missing bottom L tooth. ) Neurological: alert and oriented Last oral intake: >/= 8 hours ASA classification: II Emergent: no Anesthetic plan: proceed Anesthesia type and monitoring: general GIVS and standard monitoring Results Review: All pre-operative results and documents have been reviewed as part of the pre-operative evaluation. HTN, hyperlipidemia, hypothyroidism. Pt had stess test done last week and has not yet been informed of results. She thinks it is nml but we will attempt to obtain. Informed Consent: The patient's anesthetic plan and its attendant risks and benefits were discussed with the patient/family/POA. Questions were solicited and answers provided to the satisfaction of the patient/family/POA.
--- NOTE | 2024-04-27 15:16 | PM.HPGS ---
History of Present Illness History of Present Illness Consent: Risks, benefits, and alternatives have been discussed and questions answered. Patient agrees to proceed with procedure. Chief complaint: left lower quad abd tenderness, GERD, constipation Narrative: Johanne Castro is a 69 year old female with sensation of lump in throat, also bloating, last colonoscopy 3 years ago with polyp. Also new onset of constipation. Review of Systems Review of Systems: All systems reviewed & are unremarkable except as noted in HPI and below PMFSH Past Medical History Medical History Anxiety Depression GERD (gastroesophageal reflux disease) Obstructive sleep apnea Surgical History Surgical History History of breast lump removal History of section History of cholecystectomy Status post cervical spinal fusion Family History Family History Sibling Cerebrovascular accident Alcoholism Cancer Father Alcoholism Hypertension CAD (coronary artery disease) Mother Cancer Grandparent Cancer Social History Social History Smoking status: Former smoker Alcohol intake: current Alcohol use details: social Substance use: never Substance use type: does not use Do You Feel Safe in your Home?: Yes Lack of Transportation: No Lack of Food: Never True Current Housing: I Have Housing Concerned About Future Housing: No Difficulty Paying Gas/Electric Bills: No Difficulty Paying for Meds: No Currently Unemployed: No Education: High School Diploma/GED Difficulty w/ Childcare or Family Care: No Living arrangements: with family Occupation/Education: retired Gender identity (if verbalized by the patient): Female Spiritual care concerns: No Agree to blood products: Yes Meds Home Medications and Allergies Home Medications Medication Instructions Recorded Confirmed Type calcium carbonate (Tums Ultra) 800 mg PO DAILY 07/04/22 04/27/24 History multivitamin-ferrous 1 tablet PO DAILY 07/04/22 04/27/24 History fumarate-folic acid 18 mg-400 mcg tablet ([employer]) acetaminophen 500 mg tablet 500 mg PO Q6H PRN Pain (Scale 06/25/23 04/27/24 History Score 4-6) alprazolam 0.5 mg tablet 0.5 mg PO DAILY PRN anxiety #10 06/25/23 04/27/24 Rx tabs cyclobenzaprine 10 mg tablet 10 mg PO TID PRN unknown 06/25/23 04/27/24 History fluticasone propionate 50 1 spray intranasal DAILY PRN 06/25/23 04/27/24 History mcg/actuation nasal unknown spray,suspension atorvastatin 20 mg tablet 20 mg PO QHS #90 tabs 01/23/24 04/27/24 Rx levothyroxine 50 mcg tablet 50 mcg PO DAILY #90 tabs 01/23/24 04/27/24 Rx dexlansoprazole 60 mg 60 mg PO DAILY #30 caps 03/16/24 04/27/24 Rx capsule,biphase delayed release (Dexilant) sertraline 100 mg tablet 100 mg PO DAILY #90 tabs 03/22/24 04/27/24 Rx sertraline 50 mg tablet 50 mg PO DAILY #90 tabs 03/22/24 04/27/24 Rx Allergies Allergy/AdvReac Type Severity Reaction Status Date / Time Sulfa (Sulfonamide Allergy Mild HIVES Verified 04/27/24 14:11 Antibiotics) Vital Signs Vital Signs - 24 hr 04/27/24 14:16 Temperature 97.3 F L Pulse Rate 93 Respiratory Rate 14 Blood Pressure 146/82 H Pulse Oximetry 99 Oxygen Delivery Room Air Exam Const: General: comfortable and no acute distress HENMT: Face/Nose/Sinus: Normal nares present Eyes: General: appearance normal, both eyes and all related structures Neck: Neck: no JVD Resp: Auscultation: clear to auscultation bilaterally Cardio: Rate: regular rate Rhythm: regular rhythm GI: Inspection: non-distended GI Palp: Yes Soft to palpation Skin: General skin exam: normal color Neuro: General: gait normal Speech: normal speech Extrem: General: normal to inspection Psych: Mental Status: mental status grossly normal Assessment and Plan Assessment and plan (1) Constipation: Code(s): K59.00 - Constipation, unspecified Status: Acute Assessment and Plan: colonoscopy (2) Chronic throat clearing: Code(s): R09.89 - Other specified symptoms and signs involving the circulatory and respiratory systems Status: Acute Assessment and Plan: with lump sensation egd if negative then consider to refer to ENT (3) Bloating symptom: Code(s): R14.0 - Abdominal distension (gaseous) Status: Acute
--- NOTE | 2024-04-27 15:30 | SUR.OPER ---
EGD end time: 152, Colonoscopy start time: 1528
[2024-04-27 15:41] VITALS: BP 109/63; PULSE 81; RESP 24; O2SAT 97
[2024-04-27 15:51] VITALS: BP 118/71; PULSE 75; RESP 16; O2SAT 99
[2024-04-27 16:01] VITALS: BP 158/84; PULSE 64; RESP 14; O2SAT 100
== END 2024-04-27 16:15 | disposition home or self-care (01) ==
PROVIDERS: PCP Nurse Practitioner; Referring Provider Nurse Practitioner; Visit Provider Internal Medicine Gastroenterology
PROC: 0DJ08ZZ Inspection of Upper Intestinal Tract, Via Natural or Artificial Opening Endoscopic (ICD-10-PCS; CPT 43235; principal; 2024-04-27 15:00)
DX: K59.00 Constipation, unspecified (principal); K64.8 Other hemorrhoids; Z86.0100 Personal history of colon polyps, unspecified; R13.11 Dysphagia, oral phase; R14.0 Abdominal distension (gaseous); R05.9 Cough, unspecified; R09.89 Other specified symptoms and signs involving the circulatory and respiratory systems; J44.9 Chronic obstructive pulmonary disease, unspecified; G47.33 Obstructive sleep apnea (adult) (pediatric); F41.9 Anxiety disorder, unspecified; F32.A Depression, unspecified; Z87.891 Personal history of nicotine dependence
CPT/HCPCS: 45378; 43239; 88305; J2003; J2704; J7120

== ENCOUNTER 2024-12-20 11:16 | Outpatient (CLI) | payer MEDICARE, OTHER, SELFPAY ==
--- NOTE | ~2024-12-20 | XR_ITS ---
Supine and upright views of the abdomen Clinical history: Abdominal pain, microscopic hematuria Findings: Bowel gas pattern is nonspecific. No evidence for obstruction or free air. No abnormal mass lesion or calcification is seen. Osseous structures are intact. Impression: No significant abnormality is seen. Reviewed, dictated and finalized at [facility]. Impression: No significant abnormality is seen.
== END 2024-12-20 11:17 | disposition home or self-care (01) ==
LOC: GOSHIMG 11:17
PROVIDERS: PCP Family Medicine; Visit Provider Family Medicine
DX: N39.0 Urinary tract infection, site not specified (principal); M54.9 Dorsalgia, unspecified
CPT/HCPCS: 74018

== ENCOUNTER 2024-12-21 00:56 | Day surgery (SDC) | payer MEDICARE, OTHER, SELFPAY ==
[2024-12-16 11:07] VITALS: BMI 20.9
--- NOTE | 2024-12-16 11:23 | PC.NURSE ---
Report to the Outpatient Waiting Room, entrance under the green pavilion located off [facility], at time __10:30am on date ___12/21/24____. Planned Procedure Time: _12:30pm .? Time changes happen often and if your time is changed the preop area will call you the afternoon before. - You and your visitor will be asked to self-screen and do not enter if you have any COVID symptoms. Please call surgeon if you need to reschedule. - A mask is optional within the hospital at this time. Patients may have clear liquids (water, carbonated beverages, clear teas, apple juice) until 3 hours prior to surgery with a maximum of 20 ounces. - No food from midnight until time of surgery and no smoking, or chewing tobacco (or any form of nicotine). No chewing gum, candy or mints. (0930am) Take only the following medications with a SIP of water on the morning of surgery: Levothyroxine and Sertraline, Tylenol if needed, Alprazolam if needed, Cyclobenzaprine if needed DO NOT STOP ANY OF YOUR OTHER PRESCRIPTION MEDICATIONS PRIOR TO SURGERY EXCEPT THE FOLLOWING Hold all vitamins and supplements for 3 days per anesthesiologist. Date to take last dose 12/17/24 Please no make-up, nail mauritian, hairspray, perfume, deodorant, or body powder the day of surgery.? No jewelry (including any body piercings) or valuables the day of surgery, leave them at home.? Please take a shower or bath the night before, or the morning of, surgery with an antibacterial soap.? Wear comfortable, loose fitting clothing.? - Jewelry must be removed prior to entering the operating room.? Rings and piercings that are not removed may be cut off. - The hospital will not accept responsibility for valuables.? - Please leave all valuables, including medications, at home the day of surgery. If you are going home after surgery, a licensed delivery driver/customer service must drive you home.? - NO public transportation without another adult if you receive anesthesia. - We recommend that an adult stay with you for 24 hours following discharge. - We also recommend that you do not drive, make important decision, drink alcoholic beverages, or take any drugs that were not prescribed by your health care provider for at least 24 hours after your discharge time. Follow any additional instructions given to you from your surgeon. Telephone instructions given to __Patient and asked if any additional questions and then verbalized understanding. Patient advised to call surgeon office or pre surgery nurse liaison [phone] if any additional questions.
--- OUTSIDE RECORDS SUMMARY | 2024-12-21 00:58 | XMS_ITS | Clinical Summary ---
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 Active sertraline (ZOLOFT) 100 MG tablet Take 1.5 tablets (150 mg total) by mouth daily. 09/19/2022 Active atorvastatin (LIPITOR) 20 MG tablet Take 1 tablet (20 mg total) by mouth daily. 10/13/2023 Active levothyroxine (SYNTHROID) 50 MCG tablet Take 1 tablet (50 mcg total) by mouth every morning. 10/13/2023 Active dexlansoprazole (DEXILANT) 60 MG capsule Take 1 capsule (60 mg total) by mouth daily. 05/19/2024 Active losartan (COZAAR) 50 MG tablet Take 1 tablet (50 mg total) by mouth daily. Active Active Problems Problem Noted Date Diagnosed Date Hypertension 04/07/2024 Abdominal pain 10/17/2023 Skin eruption 10/17/2023 Hypothermia 10/16/2023 Lumbar radiculopathy 04/08/2023 Cervical disc disorder with radiculopathy of mid-cervical region 04/02/2023 Anxiety 02/20/2023 Depressive disorder 02/20/2023 Hyperlipidemia 02/20/2023 Obstructive sleep apnea syndrome 02/20/2023 Overview (10/17/2023): cannot tolerate cpap cannot tolerate cpap Restless legs 02/20/2023 Temporomandibular joint disorder 02/20/2023 Overview (10/17/2023): history with dental appliance history with dental appliance Impairment of balance 01/30/2023 Sensorineural hearing loss (SNHL) of both ears 0 01/30/2023 Vertigo of central origin, unspecified lateralit y 01/30/2023 Pain in both hands 01/29/2023 Impingement syndrome of right shoulder region Osteoarthritis of carpometacarpal (CMC) joint of thumb 05/27/2022 Pain in joint of right shoulder 03/26/2022 Nonrheumatic mitral (valve) insufficiency 2020 Nonrheumatic mitral (valve) insufficiency 2020 Chest pain 05/09/2021 Shortness of breath 05/09/2021 Trigger finger, right 12/23/2017 Insomnia 12/23/2017 Fatigue 06/23/2017 KATHLEEN (generalized anxiety disorder) 11/20/2016 Osteopenia 11/17/2015 Leg cramp 11/17/2015 BMI 20.0-20.9, adult 11/17/2015 Fibromyalgia 10/17/2015 Resolved Problems Problem Noted Date Diagnosed Date Resolved Date Urinary tract infectious disease 02/20/2023 10/05/2024 COVID-19 08/18/2022 10/05/2024 Encounter for screening for cardiovascular disorders 05/09/2021 10/20/2023 Cough 06/23/2017 10/05/2024 Encounters Date Type Department Care Team Description 10/13/2024 2:00 PM CDT Office Visit [facility] Family & Internal Medicine [address] [address] Marissa Estrada, [place] Rash (Rash on right forearm. Noticed 5 days ago) 10/13/2024 Travel 10/05/2024 11:40 AM CDT Office Visit [facility] Multispecialty Care - [facility] [address], [address] [place] [address] Darci Elder MD Gait Disturbance 10/05/2024 Travel from Last 3 Months Immunizations Immunization Administration Dates Next Due Fluzone High Dose - >Age 65 (Prefilled Syringe) 02/10/2019 Influenza (Generic) 03/18/2022 Influenza Adult (Generic) 03/24/2018 PFIZER COVID-19 (CHILD 5-11) , MRNA CHRISTINE-SUCROSE, 10 MCG/0.2ML DOSE 09/19/2020 PFIZER COVID-19 (LOPEZ CAP), MRNA, LNP-S, PF, 30 MCG/0.3 ML CHRISTINE-SUCROSE, IM 08/15/2020 Pneumococcal (Pneumovax 23) 05/02/2021, Pneumococcal (Prevnar 13) 02/02/2019 Td (Tenivac) preservative free 1954 Zoster (Zostavax) 07063 Unt/0.65Ml 1954 Zoster Unspecified Formulation 04/24/2022 Family History Medical History Relation Comments Cancer Brother Breast Cancer Maternal Aunt Breast Cancer Maternal Grandmother Cancer Mother Breast Cancer Other Breast Cancer Paternal Grandmother Depression Sister Stroke Sister Vision loss Sister Left eye only Relation Status Comments Brother Alive Maternal Aunt Maternal Grandmother Mother Alive Other Paternal Grandmother Sister Alive Social History Tobacco Use Types Packs/Day Years Used Date Smoking Tobacco: Never Smokeless Tobacco: Never Tobacco Cessation:Counseling Given: Not Answered Alcohol Use Standard Drinks/Week Comments Yes 0 (1 standard drink = 0.6 oz pur e alcohol) Occasionally, or socially B1300 Health Literacy Answer Date Recor ded How often do you need to hav e someone help you when you read instructions, pamphlets, or other written material from your doctor or pharmacy? Never 10/16/2023 [facility] Utilities Answer Date Recorded In the past 12 months has th e electric, gas, oil, or water company threatened to shut off services in your home? No 10/16/2023 Humiliation, Afraid, Rape, and Kick questionnair e Answer Date Recorded Within the last year, have y ou been afraid of your partner or ex-partner? No 10/16/2023 Within the last year, have y ou been humiliated or emotionally abused in other ways by your partner or ex-partner? No Within the last year, have y ou been kicked, hit, slapped, or otherwise physically hurt by your partner or ex-partner? No 10/16/2023 Within the last year, have y ou been raped or forced to have any kind of sexual activity by your partner or ex-partner? No 10/16/2023 Social Connection and Isolat ion Panel [NHANES] Answer Date Recorded In a typical week, how many times do you talk on the phone with family, friends, or neighbors? More than three times a week 10/16/2023 How often do you get togethe r with friends or relatives? More than three times a week 10/16/2023 How often do you attend [facility] or roman catholic services? Never 10/16/2023 Do you belong to any clubs o r organizations such as jew groups, unions, fraternal or athletic groups, or school groups? No 10/16/2023 How often do you attend meet ings of the clubs or organizations you belong to? Never 10/16/2023 Are you , , di vorced, , never , or living with a partner? 10/16/2023 AUDIT-C Answer Date Recorded Q1: How often do you have a drink containing alc ohol? 2-4 times a month 10/16/2023 Q2: How many drinks containi ng alcohol do you have on a typical day when you are drinking? 1 or 2 10/16/2023 Q3: How often do you have si x or more drinks on one occasion? Never 10/16/2023 Overall Financial Resource Strain (CARDIA) Answe r Date Recorded How hard is it for you to pa y for the very basics like food, housing, medical care, and heating? Not very hard 10/16/2023 PHQ-2 Answer Date Recorded Patient Health Questionnaire-2 Score 0 10/05/2024 [facility] - Occupational Stress Questionnaire Answer Date Recorded Do you feel stress - tense, restless, nervous, or anxious, or unable to sleep at night because your mind is troubled all the time - these days? Not at all 10/16/2023 Exercise Vital Sign Answer Date Recorde d On average, how many days pe r week do you engage in moderate to strenuous exercise (like a brisk walk)? 3 days 10/16/2023 On average, how many minutes do you engage in exercise at this level? 30 min 10/16/2023 Hunger Vital Sign Answer Date Recorded Within the past 12 months, y ou worried that your food would run out before you got the money to buy more. Never true 10/16/19 24 Within the past 12 months, t he food you bought just didn't last and you didn't have money to get more. Never true 10/16/2023 PRAPARE - Transportation Answer Date Re corded In the past 12 months, has l ack of transportation kept you from medical appointments or from getting medications? No 07/2023 In the past 12 months, has l ack of transportation kept you from meetings, work, or from getting things needed for daily living? No 10/16/2023 Housing Stability Vital Sign Answer Candido e Recorded In the last 12 months, was t here a time when you were not able to pay the mortgage or rent on time? No 10/16/2023 In the past 12 months, how m any times have you moved where you were living? 1 10/16/2023 At any time in the past [address] [facility], were you homeless or living in a halfway (including now)? No 10/16/2023 Comments No Sex and Gender Information Value Date Recorded Sex Assigned at Not on file Legal Sex Female 4:56 PM CDT Gender Identity Not on file Sexual Orientation Not on file Last Filed Vital Signs Vital Sign Reading Time Taken Comments Blood Pressure 137/87 10/13/2024 1:56 PM CDT Pulse 82 10/13/2024 1:56 PM CDT Temperature 36.4 C (97.6 F) 10/13/2024 1:56 PM CDT Respiratory Rate 16 10/13/2024 1:56 PM CDT Oxygen Saturation 100% 10/13/2024 1:56 PM CDT Inhaled Oxygen Concentration - - Weight 53.3 kg (117 lb 9.6 oz) 10/13/2024 1:56 P M CDT Height 154.9 cm (5' 1) 10/13/2024 1:56 PM CDT Body Mass Index 22.22 10/13/2024 1:56 PM CDT Plan of Treatment Upcoming Encounters Date Type Department Care Team (Late st Contact Info) Description 12/29/2024 3:30 PM CDT Appointment [facility]ammography [address] [place] [address] Marley Sargent NP [address] [place] [address] 10/10/2025 10:00 AM CDT Office Visit [facility] - [facility] [address], [address] [place] [address] Darci Elder MD [address] [place] [address] Health Maintenance Due Date Last Done Comments Hepatitis C 01/02/1972 DTaP, Tdap and Td Vaccines (1 - Tdap) 1973 1955 Zoster Vaccines (1 of 2) 01/02/2004 04/24/2022, 12/14 RSV Immunization or 60+ Years (1 - Risk 60-74 years 1-dose series) 2014 Annual Medicare Wellness Visit 2019 COVID-19 Vaccine (2 - season) 2024 09/19/2020, 08/15/2020 Mammogram Screening 01/16/2025 01/16/2023, 10/12/2021, 03/06/2020, Additional history exists Colorectal Cancer Screening Colonoscopy (10 Years) 02/19/2028 02/18/2018 Pneumococcal Vaccine: 50+ Years Completed 05/02/2021, 02/02/2019, 1955 Dexa Scan (General) Completed 05/31/2022, 0 PHQ-2 (Physician [place]) Completed 10/05/2024 Meningococcal B Vaccine Aged Out No l onger eligible based on patient's age to complete this topic Meningococcal Vaccine Aged Out No mery sae eligible based on patient's age to complete this topic RSV Immunizations Under 20 Months Aged Out No longer eligible based on patient's age to complete this topic Procedures Procedure Name Priority Date/Time Associated Diagnosis Comments MG SCREENING W CHECO ASHVIN DIGI Routine 01/16/2023 2:01 PM CDT Encounter for screening mammogram for malignant neoplasm of breast BONE DENSITY/DEXA Routine 05/31/2022 11: 23 AM INTERNET SALES DIRECTOR Asymptomatic menopausal state COLONOSCOPY Routine 02/18/2018 12:00 AM CDT from Last 3 Months or Most Recently Relevant to Health Maintenance Results * MG SCREENING W CHECO ASHVIN DIGI (01/16/2023 2:01 PM CDT) Anatomical Region Laterality Modality Breast Bilateral Mammography 01/16/2023 3:55 PM CDT Narrative 01/16/2023 4:03 PM CDT IMAGING STUDIES: Bilateral screening mammograms with computer-aided detection with 2-D and 3-D imaging. Tomosynthesis. DATE: 01/16/2023 1:32 PM HISTORY: Encounter for screening mammogram for malignant neoplasm of breast . Benign left breast biopsy in 2009 COMPARISON: 03/06/2020. 10/12/2021. TISSUE TYPE: The breast tissue is heterogeneously dense, which may obscure small masses. FINDINGS: 1. Moderate fibroglandular tissue pattern is present. Benign nodularity. Benign calcifications. Stable postoperative change in left breast. 2. No malignant microcalfcifications, new dominant masses, or architectural distortion. 3. No skin thickening or nipple retraction. Axillary regions are within normal limits. IMPRESSION: 1. No mammographic evidence of malignancy. 2. Assessment: ACR BI-RADS 2 - BENIGN FINDING(S) 3 .Routine Screening Bilateral MQSA BI-RADS Categories: Category 0 - needs additional imaging evaluation. Category 1 - negative. Category 2 - benign findings. Category 3 - probably benign findings, but short interval follow-up is recommended. Category 4 - suspicious abnormality and biopsy should be considered though the lesion may well be benign. Category 5 - highly suggestive of malignancy and appropriate action should be taken. Category 6 - known biopsy-proven malignancy A) A negative report should not delay a biopsy if a dominant or clinically suspicious mass is present. B) Adenosis and dense breasts may obscure an underlying neoplasm. C) Study interpreted with computer aided detection. Ordered By: SHANTANU SALINAS Interpreted By: Jesús Easley, 01/16/2023 3:55 PM Shantanu Salinas MD MAMMO Final Resul t * BONE DENSITY/DEXA (05/31/2022 11:23 AM INTERNET SALES DIRECTOR) Anatomical Region Laterality Modality Bone Bone Density 05/31/2022 11:4 0 AM INTERNET SALES DIRECTOR Narrative 05/31/2022 11:42 AM INTERNET SALES DIRECTOR IMAGING STUDIES: BONE DENSITY/DEXA DATE: 05/31/2022 11:16 AM CLINICAL HISTORY: Postmenopausal. No stated calcium replacement therapy. 67-year-old female with menopause at age 47.. FINDINGS: LUMBAR SPINE L2-L4: BMD: 0.919 g/sq cm T-SCORE: -1.5 WHO CLASSIFICATION: Moderate osteopenia FRACTURE RISK: Low LEFT FEMORAL NECK: BMD: 0.634 T-SCORE: -1.9 WHO CLASSIFICATION: Moderate osteopenia FRACTURE RISK: Very low COMPARISON STUDY: 03/06/2020. LUMBAR SPINE L2-L4: BMD: 0.907 T-SCORE: -1.6 WHO CLASSIFICATION: Moderate osteopenia FRACTURE RISK: Low LEFT FEMORAL NECK: BMD: 0.673 T-SCORE: -1.6 WHO CLASSIFICATION: Moderate osteopenia FRACTURE RISK: Very low Recommendation. Instigation of calcium replacement therapy with repeat imaging in 2 years Ordered By: SHANTANU SALINAS Interpreted By: Jesús Easley, 05/31/2022 11:40 AM Procedure Note Stalin Easley MD - 05/31/2022 IMAGING STUDIES: BONE DENSITY/DEXA DATE: 05/31/2022 11:16 AM CLINICAL HISTORY: Postmenopausal. No stated calcium replacement therapy.67-year-old female with menopause at age 47.. FINDINGS: LUMBAR SPINE L2-L4: BMD: 0.919 g/sq cm T-SCORE: -1.5 WHO CLASSIFICATION: Moderate osteopenia FRACTURE RISK: Low LEFT FEMORAL NECK: BMD: 0.634 T-SCORE: -1.9 WHO CLASSIFICATION: Moderate osteopenia FRACTURE RISK: Very low COMPARISON STUDY: 03/06/2020. LUMBAR SPINE L2-L4: BMD: 0.907 T-SCORE: -1.6 WHO CLASSIFICATION: Moderate osteopenia FRACTURE RISK: Low LEFT FEMORAL NECK: BMD: 0.673 T-SCORE: -1.6 WHO CLASSIFICATION: Moderate osteopenia FRACTURE RISK: Very low Recommendation. Instigation of calcium replacement therapy with repeatimaging in 2 years Ordered By: SHANTANU SALINAS Interpreted By: Jesús Easley, 05/31/2022 11:40 AM us Shantanu Salinas MD DEXA Final Resul t * Colonoscopy (02/18/2018 12:00 AM CDT) 02/18/2018 02/18/2018 Narrative [facility] TO EPIC CONVERSION - 02/18/2018 12:00 AM CDT Documented hx of procedure Procedure Note Cristhian Leal MD - 04/19/2018 Documented hx of procedure us Generic Sobeida Leal MD GI PROCEDURE ORDERABLES Final Result [facility] TO EPIC CONVERSION from Last 3 Months or Most Recently Relevant to Health [place] [address] [place] [address] [facility] MED[facility] Advance Directives * Full Code (Latest Code Status on File) Date Activated Date Inactivated Comments 10/17/2023 10:45 AM 10/17/2023 4:48 PM Care Teams Marshmallow Machine Worker Relationship Specialty Start Date End Date Sohail Patino MD [address] [place] [address] PCP - General FAMILY PRACTICE 10/16/23
--- OUTSIDE RECORDS SUMMARY | 2024-12-21 00:58 | XMS_ITS | Continuity of Care Document ---
Author Organization [facility] Address [address] [place] [address] Phone Care Team Providers Care Label Cutter Name Role Phone Francine Mcknight Unavailable Unavailable Advance Directives Directive Yes / No Effective Date File Name No Information Encounters Encounter Description Practice Location Reason(s) For Visit Diagnoses Date Provider Providers Copied on Encounter [facility], [id number] [place] [address] [address], [place], [place], [id number], [place] tel:[phone] [address] [facility] No Information [id number] Roxanna Escamilla. [address] , [address], [place], [address], [place]. tel:[phone] Family History Family Member Type Diagnosis Age At Onset No Information Payers Payer name Insurance type Covered libertarian ID Authoriza tion(s) No Information Social History Type Description Quantity Date Captured Comments Sex Female Smoking Status No Information Chief Complaint And Reason For Visit No Information Reason For Referral Reason For Referral No Information History Of Present Illness Encounter Date Complaint History Of Prese nt Illness No Information Functional Status Date Functional Assessmen t No Information Instructions Date Instruction Additional Infor mation No Information Assessments Type Assessment Date No Information Patient Care Teams Name Effective Dates (start - stop) Status Members No Information
--- OUTSIDE RECORDS SUMMARY | 2024-12-21 00:58 | XMS_ITS | Referral Summary ---
Author Organization [facility] Address [facility] [place] [address] Care Team Providers Care Wet Machine Tender Name Role Phone Darci Elder MD Unavailable [phone] Serena Del Cid NP Primary Care Provider [phone] Encounters Date Type Department Care Team Description 11/18/2024 10:00 AM CDT Therapy [facility] Otolaryngology [address] [place] [address] Office [facility] [address] [address] Quin Maldonado, SUPERVISOR PUMPING STATION Throat clearing (Primary Dx); Muscle tension dysphonia; Globus sensation 10/28/2024 1:00 PM CDT Therapy [facility] Otolaryngology [address] [place] [address] Office [facility] [address] [address] Quin Maldonado, SUPERVISOR PUMPING STATION Throat clearing (Primary Dx); Muscle tension dysphonia; Globus sensation 09/29/2024 10:20 AM CDT Therapy [facility] Otol[facility]ology [address] [place] [address] Office [facility] [address] [address] CutQuin wooten, SUPERVISOR PUMPING STATION Globus sensation (Primary Dx); Throat clearing; Muscle tension dysphonia 09/29/2024 10:20 AM CDT Office Visit [facility] ENT [address] [place] [address] [address] Trinidad Plascencia MD Paradoxical vocal fold motion disorder (Primary Dx); Throat clearing 09/21/2024 Telephone [facility] ([facility]) - [facility] ENT [address] [facility] 11th [place] [address] [place] [address] Salima Cooper MS from Last 3 Months Allergies Active Allergy Reactions Criticality Noted Date Comments Amoxicillin-Pot Clavulanate Itching,Nausea only Low 06/23/2017 Sulfa (Sulfonamide Antibiotics) Hives Medium 04/17 Sulfadiazine Hives Medium 05/09/2021 Medications melatonin 10 mg tabletIndicati ons:sleep Take 1 tablet (10 mg total) by mouth nightly Active fluticasone propionate (FLONASE) 50 mcg/actuation nasal sprayIndicatio ns:Allergic Rhinitis Administer 2 sprays into each nostril daily as needed for rhinitis or allergies 2 Active famotidine (PEPCID) 40 mg tabletIndicati ons:gastroesop hageal reflux disease Take 1 tablet (40 mg total) by mouth nightly Active cetirizine (ZyrTEC) 10 mg tabletIndicati ons:Perennial Allergic Rhinitis Take 1 tablet (10 mg total) by mouth every morning Active sertraline (ZOLOFT) 100 mg tabletIndicati ons:Anxiety with Depression Take 1.5 tablets (150 mg total) by mouth every morning Active temazepam (RESTORIL) 15 mg capsuleIndicat ions:Insomnia Take 1 capsule (15 mg total) by mouth nightly as needed for sleep or anxiety 0 Active ALPRAZolam (XANAX) 0.5 mg tabletIndicati ons:anxiety Take 1 tablet (0.5 mg total) by mouth 3 (three) times a day as needed for anxiety Active benzonatate (TESSALON) 100 mg capsuleIndicat ions:Cough Take 1 capsule (100 mg total) by mouth 3 (three) times a day as needed for cough 3 Active multivit-min/i roberto carlos/FA/vit K/lut (CENTRUM SILVER WOMEN ORAL)Indicatio ns:Supplement Take 1 tablet by mouth every morning Active calcium carbonate (Tums) 750 mg (300 mg elemental) tablet,chewabl eIndications:H ypocalcemia Prevention Take 2 tablets (1,500 mg total) by mouth every morning Active acetaminophen 500 mg capsuleIndicat ions:Pain Take 2 capsules (1,000 mg total) by mouth every 6 (six) hours as needed for pain Do not exceed 4 grams of acetaminophen daily. 3 Active cyclobenzaprin e (FLEXERIL) 10 mg tabletIndicati ons:Muscle Spasm Take 1 tablet (10 mg total) by mouth 3 (three) times a day as needed for muscle spasms 90 tablet 3 Active senna-docusate (PERICOLACE) 8.6-50 mgIndications: constipation Take 2 tablets by mouth 2 (two) times a day as needed for constipation 60 tablet 3 Active oxyCODONE (ROXICODONE) 5 mg immediate release tabletIndicati ons:Pain Take 1 tablet (5 mg total) by mouth every 4 (four) hours as needed for pain 42 tablet 3 Active levothyroxine (SYNTHROID) 50 mcg tablet Take 1 tablet (50 mcg total) by mouth daily 4 Active atorvastatin (LIPITOR) 20 mg tablet Take 1 tablet (20 mg total) by mouth nightly 4 Active Active Problems Problem Noted Date Diagnosed Date Cervical radiculopathy 06/02/2023 Cervical disc disorder with radiculopathy of mid-cervical region 04/02/2023 Anxiety 02/20/2023 Depressive disorder 02/20/2023 Hyperlipidemia 02/20/2023 Obstructive sleep apnea syndrome 02/20/2023 Overview (02/20/2023): cannot tolerate cpap Rash 02/20/2023 Restless legs 02/20/2023 Temporomandibular joint disorder 02/20/2023 Overview (02/20/2023): history with dental appliance Urinary tract infectious disease 02/20/2023 Imbalance 01/30/2023 Vertigo of central origin, unspecified lateralit y 01/30/2023 Sensorineural hearing loss (SNHL) of both ears 0 01/30/2023 Pain in both hands 01/29/2023 COVID-19 08/18/2022 Impingement syndrome of right shoulder region Osteoarthritis of carpometacarpal (CMC) joint of thumb 05/27/2022 Pain in joint of right shoulder 03/26/2022 Nonrheumatic mitral (valve) insufficiency 2020 Chest pain 05/09/2021 Shortness of breath 05/09/2021 Insomnia 12/23/2017 Trigger finger, right 12/23/2017 Cough 06/23/2017 Fatigue 06/23/2017 KATHLEEN (generalized anxiety disorder) 11/20/2016 Leg cramp 11/17/2015 Osteopenia 11/17/2015 Fibromyalgia 10/17/2015 Immunizations Immunization Administration Dates Next Due Influenza, Quadrivalent, Hig h Dose, Preservative Free, Intrr 06/03/2023,02/10/2019 Influenza, Quadrivalent, Spl it, Preservative Free, Intramuscular 03/23/2018 Influenza, Unspecified 03/18/2022,03/24/2018 Pneumococcal Conjugate PCV 13 02/02/2019 Pneumococcal Polysaccharide PPV23 05/02/2021, TD Preservative Free 1955 ZOSTER LIVE 1955 Zoster, unspecified 04/24/2022 Social History Tobacco Use Types Packs/Day Years Used Date Smoking Tobacco: Former Cigarettes 0.3 2 Smokeless Tobacco: Never Tobacco Cessation:Counseling Given: Not Answered Comments:Smoked socially in 20s AUDIT-C Answer Date Recorded Q1: How often do you have a drink containing alcohol? Never 09/12/2023 Q2: How many drinks containi ng alcohol do you have on a typical day when you are drinking? Patient does not drink Q3: How often do you have si x or more drinks on one occasion? Never 09/12/2023 Personal Safety Answer Date Recorded Have you ever been in or are you currently in a harmful physical or emotional relationship or is someone making you feel afraid or unsafe? Denies 06/02/2023 Comments Unknown Sex and Gender Information Value Date Recorded Sex Assigned at Not on file Legal Sex Female 7:31 PM SAND SLINGER Gender Identity Not on file Sexual Orientation Not on file Last Filed Vital Signs Vital Sign Reading Time Taken Comments Blood Pressure 137/66 06/03/2023 8:31 AM SAND SLINGER after ambulating Pulse 87 06/03/2023 8:31 AM SAND SLINGER Temperature 36.7 C (98.1 F) 06/03/2023 7:25 AM SAND SLINGER Respiratory Rate 15 06/03/2023 7:25 AM SAND SLINGER Oxygen Saturation 99% 06/03/2023 7:2 5 AM SAND SLINGER Inhaled Oxygen Concentration - - Weight 50.8 kg (112 lb) 09/12/2023 2:21 PM CDT Height 156.2 cm (5' 1.5) 09/12/2023 2: 21 PM CDT Body Mass Index 20.82 09/12/2023 2:21 PM CDT Plan of Treatment Not on file Medical Devices Implanted Type Area Tailor Men'S Ready To Wear Device Identifier Shelf Expiration Date Model / Serial / Lot Glob[employer] Medical Spacer Spinal 14x8mm Hedron C 7d 12mm Strl Ltxfre 1211.2418s - [id number] Implanted:Qty : 1 on 06/02/2023 by Houston Isabel MD at [facility] N/A: Spine Cervical [employer] [id number] 08/10/2030 1211.2418 S / / [id number] [employer] Maxan 10mm Level 1 Spine Cervical Anterior Plate Bone Titanium [id number] - [id number] Implanted:Qty : 1 on 06/02/2023 by Houston Isabel MD at [facility] N/A: Spine Cervical [employer] [id number] / / [employer] Maxan 4mm 14mm Variable Angle Self Drill Spine Screw Bone [id number] - [id number] Implanted:Qty : 4 on 06/02/2023 by Houston Isabel MD at [facility] N/A: Spine Cervical [employer] [id number] / / [place] [address] [facility] HEALTH BENEFIT PLAN MEDICARE [facility] Address: [address] [address] MEDICARE [facility] HEALTH BENEFIT PLAN Advance Directives For more information, please contact: [phone] Documents on File Type Date Recorded Patient Net Maker Expl anation ADVANCE DIRECTIVE 04/18/2023 9:34 PM POWER OF SUPERVISOR [employer]GES [employer] BUILDINGS-MEDICAL * Full Code (Latest Code Status on File) Date Activated Date Inactivated Comments 06/02/2023 12:22 PM 06/03/2023 2:06 PM Care Teams Wet Machine Tender Relationship Specialty Start Date End Date Serena Del Cid NP [address] [place] [address] PCP - General Nurse Practitioner 09/12/23 Darci Elder MD [address] [place] [address] Referring Physician Neurology 01/03/23
--- OUTSIDE RECORDS SUMMARY | 2024-12-21 00:58 | XMS_ITS | Encounter Summary ---
Author Organization [facility] Address [facility] [place] [address] Care Team Providers Care Furniture Sales Associate Name Role Phone Penny Salinas MD Primary Care Provider [phone] Sohail Patino MD Primary Care Provider Encounter Details Date Type Department Care Team (Late st Contact Info) Description 04/10/2023 [email or web address] Message Enc [facility] Multispecialty Care - [facility] [address] [facility], [address] [address] [facility] Provider Results Social History Tobacco Use Types Packs/Day Years Used Date Smoking Tobacco: Never Smokeless Tobacco: Never Alcohol Use Standard Drinks/Week Comments Yes 0 (1 standard drink = 0.6 oz pur e alcohol) Occasionally, or socially PHQ-2 Answer Date Recorded Patient Health Questionnaire-2 Score 0 04/09/2023 Comments No Sex and Gender Information Value Date Recorded Sex Assigned at Not on file Legal Sex Female 4:56 PM CDT Gender Identity Not on file Sexual Orientation Not on file documented as of this encounter Plan of Treatment Upcoming Encounters Date Type Department Care Team (Late st Contact Info) Description 12/29/2024 3:30 PM CDT Appointment [facility] [address] [place] [address] Marley Sargent, EDOUARD [address] [place] [address] 10/10/2025 10:00 AM CDT Office Visit [facility] Multispecialty Care - [facility] [address] [facility], [address] [place] [address] Darci Elder MD [address] [place] [address] documented as of this encounter Visit Diagnoses Not on filedocumented in this encounter Additional Health Concerns Infection Onset Date Last Indicated Resolved Time COVID-19 Rule Out 10/16/2023 10/16/2023 10/16/2023 4:20 PM CDT documented as of this encounter Care Teams Furniture Sales Associate Relationship Specialty Start Date End Date Penny Salinas MD [address] [place] [address] PCP - General FAMILY PRACTICE 11/09/21 10/15/23 Sohail Patino MD [address] [place] [address] PCP - General FAMILY PRACTICE 10/16/23 documented as of this encounter
--- OUTSIDE RECORDS SUMMARY | 2024-12-21 00:58 | XMS_ITS | Clinical Summary ---
Author Organization [facility] Address [address] [place] [address] Care Team Providers Care Distribution Lead Name Role Phone Darci Elder MD Unavailable [phone] Serena Del Cid NP Primary Care Provider [phone] Allergies Active Allergy Reactions Criticality Noted Date [...] Leg cramp 11/17/2015 Osteopenia 11/17/2015 Fibromyalgia 10/17/2015 Encounters Date Type Department Care Team Description 11/18/2024 10:00 AM CDT Therapy [facility] Otolaryngology [address] [place] [address] [address] Quin Maldonado, CATALYTIC CONVERTER OPERATOR Throat clearing (Primary Dx); Muscle tension dysphonia; Globus sensation 10/28/2024 1:00 PM CDT Therapy [facility] Otolaryngology [address] [place] [address] [address] Quin Maldonado, CATALYTIC CONVERTER OPERATOR Throat clearing (Primary Dx); Muscle tension dysphonia; Globus sensation 09/29/2024 10:20 AM CDT Therapy [facility] Otolaryngology [address] [place] [address] Office [facility] [address] [address] Quin Maldonado, CATALYTIC CONVERTER OPERATOR Globus sensation (Primary Dx); Throat clearing; Muscle tension dysphonia 09/29/2024 10:20 AM CDT Office Visit [facility] ENT [address] [facility] [address] [place] [address] Trinidad Plascencia MD Paradoxical vocal fold motion disorder (Primary Dx); Throat clearing 09/21/2024 [facility] - [facility] ENT [address] [facility] 11th [place] [address] [place] [address] Salima Cooper MS from Last 3 Months Immunizations Immunization Administration Dates Next Due Influenza, Quadrivalent, Hig h Dose, Preservative Free, Intrr 06/03/2023,02/10/2019 Influenza, Quadrivalent, Spl it, Preservative Free, Intramuscular 03/23/2018 Influenza, Unspecified 03/18/2022,03/24/2018 Pneumococcal Conjugate PCV 13 02/02/2019 Pneumococcal Polysaccharide PPV23 05/02/2021, TD Preservative Free 1955 ZOSTER LIVE 1955 Zoster, unspecified 04/24/2022 Surgical History Surgery Date Site/Laterality Comments SECTION CHOLECYSTECTOMY SHOULDER SURGERY BREAST SURGERY lump on left breast removed Medical History Medical History Date Comments Anxiety Migraines Sleep apnea GERD (gastroesophageal reflux disease) Hypertension 2023 Arthritis Sleep difficulties Years ago Tinnitus TMJ dysfunction Years ago Family History Medical History Relation Name Comments Cancer Brother Rob Domingo Heart disease Father Amaury Domingo Hypertension Father Amaury Domingo Snoring Father Amaury Domingo Cancer Maternal Grandmother Taylor Hardin Arthritis Mother Ashli Domingo Cancer Mother Ashli Domingo Snoring Mother Ashli Domingo Arthritis Sister 1 Jeffreyotisalva Wilson Depression Sister 1 Elana Wilson Miscarriages / Stillbirths Sister 1 Elana Shabazzi s Stroke Sister 1 Elana Wilson Rheum arthritis Sister 2 Nakia Relation Name Status Comments Brother Rob Domingo Alive Father Amaury Domingo Maternal Grandmother Taylor Hardin Alive Mother Ashli Domingo Sister 1 Jeffreyvioleta Steve Alive Sister 2 Nakia Alive Social History Tobacco Use Types Packs/Day [...] on file Legal Sex Female 7:31 PM TELEVISION REPAIRER Gender Identity Not on file Sexual Orientation Not on file Obstetrics History Last Filed Vital Signs Vital Sign Reading Time Taken Comments Blood Pressure 137/66 06/03/2023 8:31 AM TELEVISION REPAIRER after ambulating Pulse 87 06/03/2023 8:31 AM TELEVISION REPAIRER Temperature 36.7 C (98.1 F) 06/03/2023 7:25 AM TELEVISION REPAIRER Respiratory Rate 15 06/03/2023 7:25 AM TELEVISION REPAIRER Oxygen Saturation 99% 06/03/2023 7:2 5 AM TELEVISION REPAIRER Inhaled Oxygen Concentration - - Weight 50.8 kg (112 lb) 09/12/2023 2:21 PM CDT Height 156.2 cm (5' 1.5) 09/12/2023 2: 21 PM CDT Body Mass Index 20.82 09/12/2023 2:21 PM CDT Plan of Treatment Health Maintenance Due Date Last Done Comments Colon Cancer Screening-Colonoscopy 1955 Depression Screening 1955 Hepatitis C Screening 1955 DTaP/Tdap/Td Vaccine (1 - Tdap) 1965 Hepatitis B Screening 01/02/1972 Zoster Vaccine (1 of 2) 01/02/2004 04/24/2022, 01/01 Well Visit 65+ 2019 Breast Cancer Screening-Mammogram 01/17/2024 01/16/2023, 01/16/2023, 10/12/2021, Additional history exists Osteoporosis Screening-Bone Density Scan 05/31/2024 05/31/2022 Fall Risk Assessment 06/03/2024 06/03/2023 Influenza Vaccine (#1) 2025 3, 03/18/2022, 02/10/2019, Additional history exists Pneumococcal vaccine 65+ Completed 021, 02/02/2019, 1955 Medical Devices Implanted Type Area Clothes Marker Device Identifier Shelf Expiration Date Model / Serial / Lot Gl[employer] Medical Spacer Spinal 14x8mm Hedron C 7d 12mm Strl Ltxfre 1211.2418s - [id number] Implanted:Qty : 1 on 06/02/2023 by Houston Isabel MD at [facility] N/A: Spine Cervical [employer] [id number] 08/10/2030 1211.2418 S / / [id number] [employer] Maxan 10mm Level 1 Spine Cervical Anterior Plate Bone Titanium [id number] - [id number] Implanted:Qty : 1 on 06/02/2023 by Houston Isabel MD at [facility] N/A: Spine Cervical [employer] [id number] / / [employer] Maxan 4mm 14mm Variable Angle Self Drill Spine Screw Bone [id number] - [id number] Implanted:Qty : 4 on 06/02/2023 by Houston Isabel MD at [facility] N/A: Spine Cervical [employer] [id number] / / [place] [id number] [facility] HEALTH BENEFIT PLAN Member Subscriber Plan / Payer (Ef fective 2019-Present) Name:Johanne Montana Relation to Subscriber:Spouse Name:JOHANNE MONTANA Date of :1954 (Home) Address: [address] [place] [address] [place] [address] Payer ID:[id number] Group ID:[id number] Type:CIGNA HMO/PPO Address: [place], [place] MEDICARE MEDICARE [facility] HEALTH BENEFIT PLAN Member Subscriber Plan / Payer ( fective 2019-Present) Name:Johanne Montana Relation to Subscriber:Spouse Name:CHER MONTANA Date of :1950 (Home) Address: [address] [place] [address] Payer ID:[id number] Group ID:[id number] Type:CIGNA HMO/PPO Address: [place], [place] Advance Directives For more information, please contact: [phone] Documents on File Type Date Recorded Patient Social Research Assistant Expl anation ADVANCE DIRECTIVE 04/18/2023 9:34 PM POWER OF DATA COLLECTOR-MEDICAL * Full Code (Latest Code Status on File) Date Activated Date Inactivated Comments 06/02/2023 12:22 PM 06/03/2023 2:06 PM Care Teams Distribution Lead Relationship Specialty Start Date End Date Serena Del Cid NP [address] [place] [address] PCP - General Nurse Practitioner 09/12/23 Darci Elder MD [address] [place] [address] Referring Physician Neurology 01/03/23
--- OUTSIDE RECORDS SUMMARY | 2024-12-21 00:58 | XMS_ITS | Clinical Summary ---
Author Organization [facility] ([employer]) Address [address] [facility] [place] [address] Care Team Providers Care Ladle Liner Helper Name Role Phone Penny Salinas MD Primary Care Provider [phone] [facility],non-owned Affiliates and Associated Physician Practices is amultiple site organization consisting of ambulatory clinics and hospital sitesin [place], [place], [place] and [place]. This disclosure is being madepursuant to the Care Everywhere program and may not contain all information available regarding this patient. Last updated 18.[facility] Allergies Active Allergy Reactions Criticality Noted Date Comments Sulfa Drugs 04/18/2009 Medications * Be aware that medications may not be up to date on this document. Always verify current medications with the patient. escitalopram (LEXAPRO) 10 MG tablet Take 20 mg by mouth daily. Active BONIVA PO Take 150 mg by mouth every 30 days. Active tretinoin (RETIN-A) 0.01 % gel Apply to affected area at bedtime. Active DOXYCYCLINE (ROSACEA) PO Take by mouth 2 times daily. Active propoxyphene napsylate-aceta minophen (DARVOCET-N 100) 100-650 MG tablet Take 1 Tab by mouth every 4 hours as needed for Pain. 20 1 07/28/2009 Active ibuprofen (MOTRIN) 800 MG tablet Take 1 Tab by mouth 3 times daily as needed for Pain. 20 0 07/28/2009 Active Family History Medical History Relation Name Comments Cancer - Breast Maternal Aunt Cancer Mother Uterine and cer vical cancer Cancer Other gRANDMOTHER Cancer - Breast Other Another gran dmother Relation Name Status Comments Maternal Aunt Mother Other Social History Tobacco Use Types Packs/Day Years Used Date Smoking Tobacco: Never Alcohol Use Standard Drinks/Week Comments Yes 0 (1 standard drink = 0.6 oz pur e alcohol) RARE Comments No Sex and Gender Information Value Date Recorded Sex Assigned at Not on file Legal Sex Female 6:29 AM DRY HEAT ROOM ATTENDANT Gender Identity Not on file Sexual Orientation Not on file Last Filed Vital Signs Vital Sign Reading Time Taken Comments Blood Pressure 112/80 03/15/2013 11:04 AM CDT Pulse 52 07/28/2009 9:34 AM DRY HEAT ROOM ATTENDANT Temperature 36.2 C (97.2 F) 07/28/2009 9:34 AM DRY HEAT ROOM ATTENDANT Respiratory Rate 18 07/28/2009 9:34 AM DRY HEAT ROOM ATTENDANT Oxygen Saturation 100% 07/28/2009 9:34 AM DRY HEAT ROOM ATTENDANT Inhaled Oxygen Concentration - - Weight 56.2 kg (124 lb) 03/15/2013 11:04 AM CDT Height 157.5 cm (5' 2) 03/15/2013 11:04 AM CDT Body Mass Index 22.68 03/15/2013 11:04 AM CDT Plan of Treatment Health Maintenance Due Date Last Done Comments BONE DENSITY TESTING 1954 COLOGUARD (AGES 45-75) - COL ON CA SCREENING 1954 COLON MONITORING 1954 COLONOSCOPY - COLON CA SCREENING 1954 CT COLONOGRAPHY - COLON CA SCREENING 1954 Colorectal Cancer Screening 1954 FIT - COLON CA SCREENING 1954 FLEX SIG - COLON CA SCREENING 1954 LIPID TESTING 1954 MEDICARE AWV 12 MONTHS 1954 HEPATITIS C SCREENING 12/28/1971 DTAP/TDAP/TD VACCINES (1 - Tdap) 1973 PNEUMOCOCCAL VACCINE 50+ (1 of 1 - PCV) 01/02/2004 ZOSTER VACCINE (1 of 2) 01/02/2004 MAMMOGRAM 12/28/2014 12/28/2012, 04/11/2011, 01/11/2010 COVID-19 VACCINE ( - 2023-2 5 season) 2024 DEPRESSION SCREENING 06/16/2024 INFLUENZA VACCINE (Season Ended) 2025 03/24/2018 Respiratory Syncytial Virus (RSV) Vaccine Pt: or over 60 yrs (1 - 1-dose 75+ series) 2029 HEPATITIS B VACCINE Aged Out No longe r eligible based on patient's age to complete this topic HIB VACCINE Aged Out No longer eligi ble based on patient's age to complete this topic HPV VACCINE Aged Out No longer eligi ble based on patient's age to complete this topic MENINGOCOCCAL (Group B) VACCINE SHARED DECISION-MAKING Aged Out No longer eligible based on patient's age to complete this topic MENINGOCOCCAL GROUPS A/C/Y/W VACCINE Aged Out No longer eligible b ased on patient's age to complete this topic Procedures Procedure Name Priority Date/Time Associated Diagnosis Comments MAMMO BILAT SCREENING Routine 12/28/2012 10:28 AM CDT Other Screening Mammogram from Last 3 Months or Most Recently Relevant to Health Maintenance Results * TERESE SCREENING DIGITAL IMAGE BILATERAL [id number] (12/28/2012 10:28 AM CDT) Anatomical Region Laterality Modality Breast Bilateral Mammography 12/28/2012 2:27 PM CDT Narrative 12/28/2012 2:27 PM CDT EXAMINATION: Digital screening mammogram on 12/28/2012. PRIOR: 2010 FINDINGS: Computer assisted detection was utilized. The tissue density is heterogeneously dense. This density pattern could obscure small masses. There is no significant change since the prior mammogram. Left breast nodularity and postbiopsy change is stable. ASSESSMENT: BIRADS Category 2: Benign finding(s). RECOMMENDATION: Follow up in one year. [facility] utilizes He[employer] as a reminder system to notify patients of their next recommended mammogram. Procedure Note Salima Szymanski MD - 12/28/2012 EXAMINATION: Digital screening mammogram on 12/28/2012. PRIOR: 2010 FINDINGS: Computer assisted detection was utilized. The tissue density is heterogeneously dense. This density pattern could obscure small masses. There is no significant change since the prior mammogram. Left breast nodularity and postbiopsy change is stable. ASSESSMENT: BIRADS Category 2: Benign finding(s). RECOMMENDATION: Follow up in one year. [facility] utilizes EPIC as a reminder system to notify patients of their next recommended mammogram. Mo Kim MD MAMMO ORDERABLES Final Result from Last 3 Months or Most Recently Relevant to Health Maintenance Insurance [facility] [employer] [facility] MEDICARE [facility] [employer] [facility] SELF PAY NO INSURANCE Member Subscriber Plan / Payer (Ef fective for All Dates) Name:Johanne Montana Member ID:Not on file Relation to Subscriber:Not on file Name:JOHANNE MONTANA Subscriber ID:Not on file (Home) Address: [address] [place] [address] Payer ID:Not on file Group ID:Not on file Type:Self Pay Address: [place], [place] MEDICARE [employer] LETTER [facility] Care Teams Ladle Liner Helper Relationship Specialty Start Date End Date Penny Salinas MD [address] [place] [address] [place] [id number] PCP - General 08/02/22
--- OUTSIDE RECORDS SUMMARY | 2024-12-21 00:58 | XMS_ITS | Continuity of Care Document ---
Author Organization [facility] [facility] Address [address] [place] [address] [address] [place] [address] Phone Care Team Providers Care Printed Circuit Board Assembler Name Role Phone Wendy PT, CMPT, Adithya Unavailable [place] vailable Procedures Procedure Date Progress Note Therapeutic Activities Therapeutic Exercise Manual Therapy Therapeutic Activities Neuromuscular Re-Ed Therapeutic Exercise Therapeutic Activities Neuromuscular Re-Ed Therapeutic Exercise Therapeutic Activities Neuromuscular Re-Ed Therapeutic Exercise Manual Therapy Progress Note Therapeutic Activities Neuromuscular Re-Ed Therapeutic Exercise Manual Therapy Hot or Cold Pack Therapeutic Activities Neuromuscular Re-Ed Therapeutic Exercise Manual Therapy Therapeutic Activities Neuromuscular Re-Ed Therapeutic Exercise Manual Therapy Therapeutic Activities Neuromuscular Re-Ed Therapeutic Exercise Manual Therapy Hot or Cold Pack Therapeutic Activities Neuromuscular Re-Ed Manual Therapy Therapeutic Exercise Therapeutic Activities Neuromuscular Re-Ed Therapeutic Exercise Manual Therapy Hot or Cold Pack Therapeutic Activities Neuromuscular Re-Ed Therapeutic Exercise Manual Therapy Hot or Cold Pack Doc neg elder mal no plan PRES/ABSN URINE INCON ASSESS PT Evaluation Moderate Complexity Therapeutic Activities Neuromuscular Re-Ed Therapeutic Exercise Manual Therapy Hot or Cold Pack Therapeutic Activities Neuromuscular Re-Ed Therapeutic Exercise Therapeutic Activities Therapeutic Exercise Therapeutic Activities Neuromuscular Re-Ed Therapeutic Exercise Therapeutic Activities Neuromuscular Re-Ed Therapeutic Exercise Therapeutic Activities Neuromuscular Re-Ed Therapeutic Exercise Therapeutic Activities Neuromuscular Re-Ed Therapeutic Exercise Therapeutic Activities Neuromuscular Re-Ed Therapeutic Exercise Therapeutic Activities Neuromuscular Re-Ed Therapeutic Exercise Therapeutic Activities Neuromuscular Re-Ed Therapeutic Exercise Doc neg elder mal no plan PRES/ABSN URINE INCON ASSESS PT Evaluation Moderate Complexity Therapeutic Activities Neuromuscular Re-Ed Advance Directives Directive Yes / No Effective Date File Name No Information Encounters Encounter Description Practice Location Reason(s) For Visit Diagnoses Date Provider Providers Copied on Encounter [facility], [address], [place], [place], [id number], [place] tel:[phone] [facility] No Information Richard Haji. [address] [facility], [address], [place], [place], [facility], . tel:[phone] Referring Provider: Houston Marcano, [address] [place] [address] Medical Office Building [address], [facility]. tel:[phone] [facility], [address], [id number], [place] tel:[phone] [facility] No Information Lurtz Hanna. . Referring Provider: Houston Marcano, [address] [place] [address], [facility]. tel:[phone] [facility] [address], [id number], [place] tel:[phone] [facility] No Information Lurtz Hanna. . Referring Provider: Houston Marcano, [address] [place] [address] Office Building [address], [address]. tel:[phone] [facility] [address], [id number], tel:[phone] [facility] No Information Lurtz Hanna. . Referring Provider: Houston Marcano, [address] [place] [address] Office Building [address], [facility]. tel:[phone] [place] [address], [id number], [place] tel:[phone] [facility] No Information Richard Haji. [address] [facility], [address], [place], [place], [facility], . tel:[phone] Referring Provider: Houston Marcano, [address] [place] [address], [address]. tel:[phone], [id number], tel:[phone] [facility] No Information Lurtz Hanna. . Referring Provider: Houston Marcano, [address] [place] [address], [address]. tel:[phone], [id number], [place] tel:[phone] [facility] No Information Lurtz Hanna. . Referring Provider: Houston Marcano, [address] [place] [address], [address]. tel:[phone], [id number], [place] tel:[phone] [facility] No Information Richard Haji. [address] [place] [address], [address], [place], [facility], . tel:[phone] Referring Provider: Houston Marcano, [address] [place] [address], [address]. tel:[phone], [id number], [place] tel:[phone] [facility] No Information Lurtz Hanna. . Referring Provider: Houston Marcano, [address] [place] [address], [address]. tel:[phone] [facility], [address] [place] [address], [id number], [place] tel:[phone] [facility] No Information Richard Haji. [address] [facility], [address], [place], [facility], . tel:[phone] Referring Provider: Houston Marcano, [facility] Medical Office Building [address], [address]. tel:[phone], [id number], tel:[phone] [facility] No Information Richard Haji. [address] [facility], [address], [place], [facility], . tel:[phone] Referring Provider: Houston Marcano, [facility] Medical Office Building [address], [address]. tel:[phone], [id number], tel:[phone] [facility] No Information Richard Haji. [address] [place] [address], [address], [place], [facility], [place]. tel:[phone] Referring Provider: Houston Marcano, [facility] Office Building [address], [address]. tel:[phone], [id number], [place] tel:[phone] [facility] No Information Lary Castellanos. . Referring Provider: Kolton Addison, [facility] 11th [address], [place], [address]. tel:[phone], [id number], tel:[phone] [facility] No Information Lary Castellanos. . Referring Provider: Kolton Addison, Oliverio [facility] 11th [address], [place], [address]. tel:[phone] [facility], [address], [place], [place], [id number], [place] tel:[phone] [facility] No Information Lary Castellanos. . Referring Provider: Oliverio Lemus [address], [place], [address]. tel:[phone] [facility], [address], [place], [place], [id number], [place] tel:[phone] [facility] No Information Lary Castellanos. . Referring Provider: Oliverio Lemus [address], [place], [address]. tel:[phone] [facility], [address] [facility], [place], [place], [id number], [place] tel:[phone] [facility] No Information Modglin Adrián. . Referring Provider: Oliverio Lemus [address], [place], [address]. tel:[phone] [facility], [address] [facility], [place], [place], [id number], [place] tel:[phone] [facility] No Information Lary Castellanos. . Referring Provider: Oliverio Lemus [address], [place], [address]. tel:[phone] [facility], [address], [place], [place], [id number], [place] tel:[phone] [facility] No Information Lary Castellanos. . Referring Provider: Oliverio Lemus [address], [place], [address]. tel:[phone] [facility], [address], [place], [place], [id number], [place] tel:[phone] [facility] No Information Lary Castellanos. . Referring Provider: Kolton Addison, [address], [place], [address]. tel:[phone] [facility], [address] [place] [address], [place], [place], [id number], tel:[phone] [facility] No Information Lary Castellanos. . Referring Provider: Kolton Addison, [address], [place], [address]. tel:[phone] [place] [address], [place], [place], [id number], tel:[phone] [facility] No Information Lary Castellanos. . Referring Provider: Kolton Addison [address], [place], [address]. tel:[phone] Family History Family Member Type Diagnosis Age At Onset No Information Payers Payer name Insurance type Covered green party ID Authortrevora ana(s) Medicare [place] [id number] [facility] [id number] Social History Type Description Quantity Date Captured [...]
--- NOTE | 2024-12-21 08:44 | WPDHPUPDATE1 ---
History and Physical Update Update Date/Time: 12/21/24 08:44 History and Physical has been reviewed, including an updated exam of the patient. There are NO changes in the patient's condition. Risks, benefits, and alternatives have been discussed and questions answered. Patient agrees to proceed with procedure.
--- NOTE | 2024-12-21 08:45 | WPDHPUPDATE1 ---
History and Physical Update Update Date/Time: 12/21/24 08:45 History and Physical has been reviewed, including an updated exam of the patient. There are NO changes in the patient's condition. Risks, benefits, and alternatives have been discussed and questions answered. Patient agrees to proceed with procedure.
[2024-12-21 10:30] VITALS: BP 137/73; PULSE 66; RESP 14; TEMP 36.6; O2SAT 96; BMI 20.9
[2024-12-21] MEDS: LACTATED RINGERS 1,000 ML 30 ML IV CONT (11:00)
[2024-12-21] MEDS: CELECOXIB 200 MG CAPSULE PO (11:20)
[2024-12-21] MEDS: ACETAMINOPHEN 500 MG TABLET 1000 MG PO (11:20)
--- NOTE | 2024-12-21 11:46 | WPDANESEPPF ---
Anes - Initial Pre Proc Eval Procedure: Operation Date: 12/21/24 12:30 Proposed Procedures p Right Hand Fourth Digit A-1 Shyanne Release, Left Carpal Metacarpal Joint Injection - Sudhakar Cortés MD Date/Time: 12/21/24 11:46 Surgeon: Sudhakar Cortés MD Pre Op Diagnosis: right hand 4th digit trigger finger,left CMC DJD Patient Data Age: 69 Gender: F Height: 1.57 m Weight: 52 kg Allergies Allergy/AdvReac Type Severity Reaction Status Date / Time Sulfa (Sulfonamide Allergy Mild HIVES Verified 12/20/24 10:54 Antibiotics) Home Medications ?Medication ?Instructions ?Recorded ?Confirmed ?Type multivitamin-ferrous 1 tablet PO DAILY 07/04/22 12/20/24 History fumarate-folic acid 18 mg-400 mcg tablet (Centrum Women) acetaminophen 500 mg tablet 500 mg PO Q6H PRN Pain (Scale 06/25/23 12/20/24 History Score 4-6) alprazolam 0.5 mg tablet 0.5 mg PO DAILY PRN anxiety #10 06/25/23 12/20/24 Rx tabs atorvastatin 20 mg tablet 20 mg PO QHS #90 tabs 01/23/24 12/20/24 Rx sertraline 100 mg tablet 100 mg PO DAILY #90 tabs 03/22/24 12/20/24 Rx levothyroxine 25 mcg tablet 25 mcg PO DAILY #90 tabs 09/14/24 12/20/24 Rx (Synthroid) dexlansoprazole 60 mg 60 mg PO DAILY #30 caps 10/07/24 12/20/24 Rx capsule,biphase delayed release (Dexilant) cyclobenzaprine 10 mg tablet 10 mg PO QHS PRN back pain #90 tabs 11/10/24 12/20/24 Rx cetirizine 10 mg tablet (Zyrtec) 10 mg PO DAILY PRN allergic 12/01/24 12/20/24 History symptoms losartan 50 mg tablet 50 mg PO DAILY 12/16/24 12/20/24 History nitrofurantoin 100 mg PO Q12H 5 days #10 caps 12/20/24 12/20/24 Rx monohydrate/macrocrystals 100 mg capsule Patient hx anesthesia problems: none Family hx anesthesia problems: none Results Review: All pre-operative results and documents have been reviewed as part of the pre-operative evaluation. [facility] Past Medical History Medical History Peripheral neuropathy due to disorder of metabolism Acquired hallux valgus of left foot Rash Left knee pain Trigger finger CMC arthritis CMC arthritis, thumb, degenerative Obstructive sleep apnea GERD (gastroesophageal reflux disease) Depression Anxiety Surgical History Surgical History History of breast lump removal Status post cervical spinal fusion History of section History of cholecystectomy Family History Family History Sibling Cerebrovascular accident Alcoholism Cancer Father Alcoholism Hypertension CAD (coronary artery disease) Mother Cancer Grandparent Cancer Social History Social History Smoking packs per day: 0.5 Smoking cigarettes per day: 10.0 Years smoked: 2 Smoking pack-years: 1.00 Smoking status: Former smoker Tobacco type: cigarettes Smoking end date: 06/16/73 Alcohol intake: current Drinks per week: 1 Alcohol use details: social Substance use: never Substance use type: does not use Do You Feel Safe in your Home?: Yes Lack of Transportation: No Lack of Food: Never True Current Housing: I Have Housing Concerned About Future Housing: No Difficulty Paying Gas/Electric Bills: No Difficulty Paying for Meds: No Currently Unemployed: No Education: High School Diploma/GED Difficulty w/ Childcare or Family Care: No Living arrangements: with family Occupation/Education: retired Gender identity (if verbalized by the patient): Female Spiritual care concerns: No Agree to blood products: Yes Anes - Eval Final PreProcedure Day of Procedure 12/21/24 11:46 Patient weight: normal Lungs: normal air movement Airway: Mallampati scale class II and special considerations (Missing L lower tooth. ) Neurological: alert and oriented Last oral intake: >/= 8 hours ASA classification: II Emergent: no Anesthetic plan: proceed Anesthesia type and monitoring: general GIVS and standard monitoring Results Review: All pre-operative results and documents have been reviewed as part of the pre-operative evaluation. HTN, hyperlipidemia, hypothyroidism. Informed Consent: The patient's anesthetic plan and its attendant risks and benefits were discussed with the patient/family/POA. Questions were solicited and answers provided to the satisfaction of the patient/family/POA.
[2024-12-21] MEDS: ceFAZolin 2 GM/D5W 50 ML 2 GM/50 ML BAG IVPB (11:56)
[2024-12-21] MEDS: LIDOCAINE 1% LOCAL INJ 10 ML VIAL INFILTRATE (12:17)
[2024-12-21] MEDS: methylPREDNISolone ACETATE 80 MG/ML VIAL IM (12:21)
[2024-12-21 12:24] VITALS: BP 111/53; PULSE 68; RESP 14; O2SAT 99
--- NOTE | 2024-12-21 12:26 | W.PM.PROC2 ---
Procedure Note - Detailed Date of Procedure 12/21/24 Pre-op Diagnosis right hand 4th digit trigger finger,left CMC DJD Post-op Diagnosis Same Procedure Performed RELEASE OF A1 MAURO RIGHT RING FINGER AND LEFT THUMB CMC INJECTION Surgeon Sudhakar Cortés MD Anesthesia General Description of Procedure THE PATIENT WAS TAKEN TO THE OR IN STABLE CONDITION. THE RIGHT UPPER EXTREMITY WAS PREPPED AND DRAPED IN THE USUAL STERILE FASHION. THE TOURNIQUET WAS INFLATED. AN INCISION WAS MADE OVER THE RING FINGER A1 MAURO DOWN THROUGH THE SUBCUTANEOUS TISSUES UNTIL THE A1 MAURO SHEATH WAS VISUALIZED. AN INCISION WAS MADE OVER THE MAURO UNTIL THE FLEXOR TENDON WAS IDENTIFIED. THE INCISION CONTINUED PROXIMALLY AND DISTALLY UNTIL THE MAURO WAS RELEASED AND THE TENDON EXCURSION WAS WITHOUT TRIGGERING. THE TENDONS WERE DIRECTLY VISUALIZED AND WERE INTACT. THE TOURNIQUET WAS DEFLATED AND THE WOUND WAS WASHED AND THE BLEEDERS WERE CAUTERIZED. THE SKIN WAS REPAIRED WITH 4-0 NYLON. STERILE DRESSING WAS APPLIED. NEXT THE LEFT THUMB CMC JOINT WAS PREPPED. 80 MG DEPO MEDROL 1 CC WITH LIDOCAINE 0.1% 1 CC WAS INJECTED TO THE CMC JOINT. PATIENTS SEDATION WAS REVERSED. SHE WAS SENT TO RECOVERY ROOM. A STERILE DRESSING WAS APPLIED. THE PATIENT WAS EXTUBATED AND SENT TO RECOVERY ROOM. Estimated Blood Loss 1 Complications No immediate complications Condition Stable Disposition PACU
[2024-12-21 12:50] VITALS: BP 126/68; PULSE 57; RESP 18; O2SAT 97
[2024-12-21 13:10] VITALS: BP 111/53; PULSE 63; RESP 16
[2024-12-21 13:35] VITALS: BP 130/66; PULSE 62; RESP 16
== END 2024-12-21 13:40 | disposition home or self-care (01) ==
PROVIDERS: PCP Family Medicine; Visit Provider Orthopaedic Surgery
PROC: (CPT 26055; principal; 2024-12-21 12:30)
DX: M65.341 Trigger finger, right ring finger (principal); M18.12 Unilateral primary osteoarthritis of first carpometacarpal joint, left hand; I10 Essential (primary) hypertension; E78.5 Hyperlipidemia, unspecified; E03.9 Hypothyroidism, unspecified; G47.33 Obstructive sleep apnea (adult) (pediatric); K21.9 Gastro-esophageal reflux disease without esophagitis; F32.A Depression, unspecified; F41.9 Anxiety disorder, unspecified; G62.9 Polyneuropathy, unspecified; Z98.1 Arthrodesis status; Z90.49 Acquired absence of other specified parts of digestive tract; Z87.891 Personal history of nicotine dependence; Z80.9 Family history of malignant neoplasm, unspecified; Z82.49 Family history of ischemic heart disease and other diseases of the circulatory system
CPT/HCPCS: 26055; 20600; A9270; J0690; J1010; J2003; J2704; J3010; J7120